=== PATIENT | female | born 1990 | race Two or more races ===

== ENCOUNTER 2020-01-13 16:10 | Outpatient (REF) | payer MEDICARE, MEDICAID, SELFPAY ==
[2020-01-13 17:02] LABS: MANUAL DIFF FLAG NO
[2020-01-13 17:05] LABS: Basophils Percent Auto 0.3 % (0-2); Eosinophils Absolute Auto 0.1 X10*3/uL (0.0-0.4); Eosinophils Percent Auto 1.3 % (0-4); Hematocrit 39.3 % (37-47); Hemoglobin 12.5 g/dl (12.0-16.0); Imm Gran Abs Auto 0.01 X10*3/uL (0.00-0.03); Imm Gran Pct Auto 0.1 % (0.0-0.4); Lymphocytes Absolute Auto 1.7 X10*3/uL (1.2-4.9); Lymphocytes Percent Auto 24.5 % (20-40); Mean Corpuscular HGB Conc 31.8 g/dl (31.0-35.0); Mean Corpuscular Hemoglobin 27.9 pg (27.0-33.0); Mean Corpuscular Volume 87.7 fL (80-98); Mean Platelet Volume 10.2 fL (9.4-12.3); Monocytes Absolute Auto 0.6 X10*3/uL (0.1-1.2); Monocytes Percent Auto 7.9 % (2-11); Neutrophils Absolute Auto 4.6 X10*3/uL (2.0-8.3); Neutrophils Percent Auto 65.9 % (45-73); Platelet Count 239 X10*3/uL (160-400); Red Blood Count 4.48 X10*6/uL (4.20-5.50); Red Cell Distribution Width 14.2 % (11.0-16.0)
[2020-01-13 17:33] LABS: Anion Gap 8 (12-20); Blood Urea Nitrogen 12 mg/dL (9-16); Calcium 8.8 mg/dL (8.4-10.2); Carbon Dioxide 31 mmol/L (22-29); Chloride 102 mmol/L (96-108); Cholesterol 155 mg/dL; Estimated Glomerular Filt Rate > 60; Glucose Random 92 mg/dL (60-115); HDL Cholesterol 45 mg/dL; LDL Cholesterol Calculated 94 mg/dl; Potassium 3.8 mmol/l (3.3-5.1); Sodium 137 mmol/L (135-145); Triglycerides 81 mg/dL
[2020-01-13 17:36] LABS: Reflex LDLD? No
[2020-01-13 17:45] LABS: Glucose Urine UA NEG (NEG); Leukocyte Esterase Urine NEG (NEG); Nitrite Urine NEG (NEG); Urine Blood NEG (NEG); Urine Ketones NEG (NEG); Urine Protein NEG (NEG-TRACE)
[2020-01-13 17:53] LABS: TSH reflex Free T4 4.54 mIU/mL (0.32-4.0)
[2020-01-13 17:59] LABS: Appearance Urine CLEAR; Color Urine YELLOW
[2020-01-13 18:00] LABS: Bacteria Urine 1+ /LPF; RBC Urine 0 /HPF (0); Squamous Epithelial Cell Urine 2+ /LPF; WBC Urine 0 /HPF (0-4)
[2020-01-13 19:04] LABS: Free T4 (Free Thyroxine) 0.93 ng/dL (0.71-1.85)
== END 2020-01-13 16:11 | disposition home or self-care (01) ==
LOC: HO.LAB 16:10
PROVIDERS: PCP Internal Medicine; Visit Provider Nurse Practitioner Family
DX: E03.9 Hypothyroidism, unspecified (principal); N39.0 Urinary tract infection, site not specified
CPT/HCPCS: 36415; 80048; 80061; 81001; 84439; 84443; 85025

== ENCOUNTER 2020-07-11 13:20 | Outpatient (REF) | payer OTHER, SELFPAY ==
--- NOTE | 2020-07-11 13:33 | ECG_ITS ---
Test Reason : R07.9 - Chest pain, unspecified Blood Pressure : / mmHG Vent. Rate : 079 BPM Atrial Rate : 079 BPM P-R Int : 132 ms QRS Dur : 076 ms QT Int : 372 ms P-R-T Axes : 011 -22 001 degrees QTc Int : 426 ms Normal sinus rhythm with sinus arrhythmia Normal ECG No previous ECGs available Referred By: Yovana Salas Electronically Signed By:KENDALL FULLER
[2020-07-11 14:04] LABS: MANUAL DIFF FLAG NO
[2020-07-11 14:09] LABS: Basophils Percent Auto 0.3 % (0-2); Eosinophils Absolute Auto 0.1 X10*3/uL (0.0-0.4); Eosinophils Percent Auto 0.9 % (0-4); Hematocrit 40.9 % (37-47); Imm Gran Abs Auto 0.02 X10*3/uL (0.00-0.03); Imm Gran Pct Auto 0.3 % (0.0-0.4); Lymphocytes Absolute Auto 1.5 X10*3/uL (1.2-4.9); Lymphocytes Percent Auto 20.1 % (20-40); Mean Corpuscular HGB Conc 31.8 g/dl (31.0-35.0); Mean Corpuscular Hemoglobin 27.4 pg (27.0-33.0); Mean Corpuscular Volume 86.3 fL (80-98); Monocytes Absolute Auto 0.5 X10*3/uL (0.1-1.2); Neutrophils Absolute Auto 5.4 X10*3/uL (2.0-8.3); Neutrophils Percent Auto 71.4 % (45-73); Platelet Count 229 X10*3/uL (160-400); Red Blood Count 4.74 X10*6/uL (4.20-5.50); Red Cell Distribution Width 14.3 % (11.0-16.0); White Blood Count 7.6 X10*3/uL (4.8-10.8)
[2020-07-11 14:39] LABS: Alanine Aminotransferase 23 U/L (0-31); Albumin Level 3.8 g/dL (3.5-5.0); Alkaline Phosphatase 70 U/L (39-117); Anion Gap 12 (12-20); Aspartate Amino Transferase 14 U/L (5-31); Bilirubin Total 0.4 mg/dL (0.0-1.0); Blood Urea Nitrogen 13 mg/dL (9-16); Calcium 9.4 mg/dL (8.4-10.2); Carbon Dioxide 27 mmol/L (22-29); Chloride 103 mmol/L (96-108); Cholesterol 164 mg/dL; Estimated Glomerular Filt Rate > 60; Glucose Fasting 82 mg/dL (60-99); HDL Cholesterol 45 mg/dL; LDL Cholesterol Calculated 96 mg/dl; Potassium 4.4 mmol/L (3.3-5.1); Sodium 138 mmol/L (135-145); Total Protein 7.3 g/dL (6.5-8.0); Triglycerides 118 mg/dL
[2020-07-11 14:49] LABS: TSH reflex Free T4 5.99 uIU/mL (0.32-4.0)
[2020-07-11 15:23] LABS: Free T4 (Free Thyroxine) 0.81 ng/dL (0.71-1.85)
[2020-07-12 06:22] LABS: Thyroid Peroxidase Antibodies >900 IU/mL (<9)
[2020-07-12 09:31] LABS: Thyroglobulin Antibodies 51 IU/mL (< or = 1)
[2020-07-15 15:56] LABS: Vitamin D 25-OH, D2 10 ng/mL; Vitamin D 25-OH, D3 7 ng/mL; Vitamin D 25-OH, Total 17 ng/mL (30-100)
[2020-07-18 16:06] LABS: Thyroid Stimulating Immunoglob <89 % baseline (<140)
== END 2020-07-11 13:21 | disposition home or self-care (01) ==
LOC: HO.LAB 13:20
PROVIDERS: PCP Internal Medicine; Visit Provider Internal Medicine
DX: R07.9 Chest pain, unspecified (principal); E55.9 Vitamin D deficiency, unspecified; E03.9 Hypothyroidism, unspecified; E78.5 Hyperlipidemia, unspecified; E66.9 Obesity, unspecified
CPT/HCPCS: 36415; 80053; 80061; 82306; 84439; 84443; 84445; 85025; 86376; 86800; 93005

== ENCOUNTER → 2020-07-20 13:52 | Outpatient (REF) | payer OTHER, SELFPAY ==
--- NOTE | 2020-07-20 13:55 | CA_ITS ---
Transthoracic Echocardiogram Patient (Last, First, Middle): Megha Ambrocio, Gender: Female Date of : 1990 Age: 30 Procedure Date: 07/20/2020 Procedure Type: Transthoracic Echocardiogram Location: OP Height: 162.56 cm Weight: 108.86 kg BSA: 2.11 m2 Heart Rate: bpm BP: 96 / 52 mmHg Fish Liver Sorter: Michelle MD: Yovana Salas MD Box Truck Washer: Loco Ward MD Symptoms: R06.02 - Shortness of breath Study Quality: Fair ECG Rhythm: Sinus Conclusions: - Essentially normal study Findings Left Ventricle Normal left ventricular size, thickness, and systolic function. The visually estimated ejection fraction is between 60-65%. Diastolic function is normal for age. Right Ventricle The right ventricle was not well visualized. Atria The left atrium is normal in size. Interatrial shunt cannot be excluded. The right atrium was not well visualized. Aortic Valve The aortic valve structure and function is likely normal. There is no aortic valve stenosis. There is no aortic valve regurgitation. Mitral Valve Normal mitral valve structure and function. There is trace mitral valve regurgitation. There is no mitral valve stenosis. Pulmonic Valve The pulmonic valve was not well visualized. Tricuspid Valve Likely normal tricuspid valve structure and function. There is trace tricuspid valve regurgitation. The right ventricular systolic pressure is normal. The right ventricular systolic pressure is 24 mmHg. Normal right atrial pressure. There is no evidence of pulmonary hypertension. Great Vessels All visible segments of the aorta are normal in size. The pulmonary artery was not well visualized. Venous The inferior vena cava is normal in size and collapses greater than 50% with inspiration. Pericardium/Pleural There is no evidence of pericardial effusion. Prior Study Comparison No prior study available for comparison. Measurements 2D Linear Measurements RVIDd: 3.17 RVIDd Index: 1.50 IVSd: 0.76 0.6-0.9/0.6-1.0 cm LVIDd: 5.24 3.9-5.3/4.2-5.9 cm LVIDd Index: 2.48 2.4-3.2/2.2-3.1 cm/m2 LVIDs: 3.62 2.0-3.6 cm LVPWd: 0.86 0.7-1.1 cm Ao Root: 2.60 2.1-3.5 cm LA Diam: 3.90 2.7-3.8/3.0-4.0 cm LAIDs Index: 1.85 1.5-2.3 cm/m2 LV Mass: 185.08 67-162/88-224 g LV Mass Index: 87.72 43-95/49-115 g/m2 LVOT Diam: 2.30 3.0+(-)1.3 cm 2D Systolic Function EF 4C: 63.30 >55% EF 2C: 65.30 >55% EF BiP: 64.20 >55% Mitral Valve MV Pk E: 1.08 MV PK A: 0.42 MV Decel Time: 215.00 E/A: 2.60 E'Lateral: 17.50 E'Medial: 10.90 E/E' Med: 9.90 E/E' Lat: 6.20 Aortic Valve AoV Pk Pelon: 1.14 AoV Mn Pelon: 0.86 AoV VTI: 0.26 AoV Pk Grad: 5.00 Aov Mn Grad: 3.00 WALLY Cont.VTI: 2.43 LVOT LVOT Pk Pelon: 0.73 LVOT Mn Pelon: 0.53 LVOT VTI: 0.15 LVOT Pk Grad: 2.00 LVOT Mn Grad: 1.00 LVOT Diam: 2.30 LVOT Area: 4.15 Diastolic Function MV Pk E: 1.08 MV Pk A: 0.42 E/A: 2.60 E'Medial: 10.90 E/E' Med: 9.90 E' Laterial: 17.50 E/E' Lat: 6.20 Tricuspid Valve TR Pk Pelon: 2.31 TR Pk Grad: 21.00 RA Press: 3.00 RVSP: 24.00 Great Vessels Aorta Ao Root-2D: 2.60 2.0-3.7 cm Ao Asc: 3.10 2.1-3.4 cm Ao Arch: 2.70 Updated in Other Vendor System with Status of Final Loco Ward MD electronically signed on 07/23/2020 12:37:44 PM with status of Final
== END ==
LOC: HO.CARD 13:52
PROVIDERS: PCP Internal Medicine; Visit Provider Internal Medicine
DX: R06.02 Shortness of breath (principal)
CPT/HCPCS: 93306

== ENCOUNTER 2020-08-18 16:43 | Emergency (ER) | payer OTHER, SELFPAY ==
[2020-08-18 17:50] VITALS: BP 138/93; PULSE 99; RESP 18; TEMP 37.2; O2SAT 99; BMI 42.9
[2020-08-18 18:15] LABS: Glucose Urine UA NEG (NEG); Leukocyte Esterase Urine NEG (NEG); Nitrite Urine NEG (NEG); PH 6.5 (5.0-8.0); Urine Blood NEG (NEG); Urine Ketones NEG (NEG); Urine Protein NEG (NEG-TRACE)
[2020-08-18 18:20] LABS: Appearance Urine CLEAR; Color Urine YELLOW
[2020-08-18 19:50] LABS: MANUAL DIFF FLAG NO
[2020-08-18 19:51] LABS: Basophils Percent Auto 0.3 % (0-2); Eosinophils Absolute Auto 0.1 X10*3/uL (0.0-0.4); Eosinophils Percent Auto 1.1 % (0-4); Hematocrit 40.6 % (37-47); Hemoglobin 13.1 g/dl (12.0-16.0); Imm Gran Abs Auto 0.02 X10*3/uL (0.00-0.03); Imm Gran Pct Auto 0.3 % (0.0-0.4); Lymphocytes Absolute Auto 1.2 X10*3/uL (1.2-4.9); Lymphocytes Percent Auto 17.5 % (20-40); Mean Corpuscular HGB Conc 32.3 g/dl (31.0-35.0); Mean Corpuscular Hemoglobin 27.7 pg (27.0-33.0); Mean Corpuscular Volume 85.8 fL (80-98); Mean Platelet Volume 9.8 fL (9.4-12.3); Monocytes Absolute Auto 0.6 X10*3/uL (0.1-1.2); Monocytes Percent Auto 8.4 % (2-11); Neutrophils Absolute Auto 4.8 X10*3/uL (2.0-8.3); Neutrophils Percent Auto 72.4 % (45-73); Platelet Count 226 X10*3/uL (160-400); Red Blood Count 4.73 X10*6/uL (4.20-5.50); Red Cell Distribution Width 14.2 % (11.0-16.0); White Blood Count 6.6 X10*3/uL (4.8-10.8)
[2020-08-18 20:27] LABS: Anion Gap 9 (12-20); Blood Urea Nitrogen 12 mg/dL (9-16); Carbon Dioxide 29 mmol/L (22-29); Chloride 104 mmol/L (96-108); Creatinine Clr Calc Pharmacy 113.6; Estimated Glomerular Filt Rate > 60; Glucose Random 89 mg/dL (60-115); Potassium 4.2 mmol/L (3.3-5.1); Sodium 138 mmol/L (135-145)
[2020-08-18 20:29] LABS: B Type Natriuretic Peptide 19 pg/mL (<100)
--- NOTE | 2020-08-18 21:58 | ED_ITS ---
HPI - General Adult General Chief complaint: General Medical Stated complaint: mutiple complaints Time Seen by Provider: 08/18/20 21:58 Source: patient Mode of arrival: ambulatory History of Present Illness HPI narrative: This is a 30-year-old female without significant past medical history who presents with complaints of 1 month of lower back pain with some associated radiation into the left lower extremity without numbness or tingling as well as stating that she has had some mild lower leg swelling that resolves overnight while sleeping. In addition, patient states that she has also had an unidentified rash that is been ?coming and going?. She does have a follow-up appoint with her primary care provider next month. Otherwise, these have not been associated with fever, chills, GI symptoms, symptoms. Patient denies any bowel or bladder dysfunction. LMP last month. Related Data Home Medications Medication Instructions Recorded Confirmed cholecalciferol (vitamin D3) 50 50 mcg PO DAILY 06/01/20 06/01/20 mcg (2,000 unit) capsule Previous Rx's Medication Instructions Recorded albuterol sulfate 0.63 mg/3 mL 0.63 mg INHALATION Q4-6H PRN 30 06/01/20 solution for nebulization Days #90 ml albuterol sulfate 90 mcg/actuation 2 puff PO Q4H PRN 30 Days #18 g 06/01/20 aerosol inhaler levothyroxine 25 mcg tablet 25 mcg PO DAILY 90 Days #90 tab 06/01/20 Allergies Allergy/AdvReac Type Severity Reaction Status Date / Time ergocalciferol (vitamin D2) AdvReac Mild swelling Verified 06/01/20 12:26 [From Vitamin D2] Review of Systems Review of Systems: Pertinent positives and negatives as stated in HPI 10 point review of systems is otherwise negative. [facility] Past Medical History Source: nursing notes reviewed Medical History Chest pain Hypothyroidism Hypovitaminosis D Mild asthma Obese Shortness of breath Surgical History No pertinent past surgical history Family History Family History Father No problems noted. Mother No problems noted. Maternal Grandmother Hypertension Paternal Grandmother Hypertension Diabetes Paternal Grandfather Diabetes Hypertension Social History Social History Smoking Status: Never smoker Advance Directives: No Advance Directives Information Provided: Yes Physical Exam Vital Signs: Vital Signs: Last Vital Signs Temp 98.9 F 08/18/20 17:50 Pulse 99 08/18/20 17:50 Resp 18 08/18/20 17:50 BP 138/93 H 08/18/20 17:50 Pulse Ox 99 08/18/20 17:50 Body Mass Index 42.9 VITAL SIGNS: Reviewed. GENERAL: Morbidly obese, Well developed, well nourished, in no acute distress. HEAD: Normocephalic/atraumatic EYES: PERRLA, EOMI EARS: Ext canals without abnormality NOSE: Nares patent bilateral OROPHARYNX: no oral lesions noted, posterior pharynx clear, moist mucosa NECK: Supple, no adenopathy LUNGS: Normal breath sounds. No adventitious sounds or accessory muscle use. SpO2<99> CARDIOVASCULAR: Regular rate and rhythm without noted murmurs ABDOMEN: Obese, Soft, non-tender, non-distended with bowel sounds. MUSCULOSKELETAL: No tenderness, deformities, or effusions noted on gross inspection, specifically no calf swelling, tenderness, pain. SKIN: Inspection of the skin reveals no rashes NEUROLOGIC: Alert and oriented x 4. Strength and sensation to light touch were grossly intact x 4. Course Course Course Narrative: This is a 30-year-old female with history and clinical presentation consistent with chronic back pain. Low clinical suspicion for DVT, renal issues, and unable to appreciate the rash that patient was referencing however there is no evidence for angioedema or anaphylaxis. Review of all investigations negative for acute changes from baseline, infections. Patient was reassured and instructed to follow-up with her outpatient physician and utilize [id number] Tylenol/ibuprofen as well as compression stockings. Medical Decision Making Lab Data Result diagrams: 08/18/20 19:35 08/18/20 19:35 Labs: Lab Results 08/18/20 08/18/20 08/18/20 Range/Units 18:02 19:35 19:35 WBC 6.6 (4.8-10.8) X10*3/uL RBC 4.73 (4.20-5.50) X10*6/uL Hgb 13.1 (12.0-16.0) g/dl Hct 40.6 (37-47) % MCV 85.8 (80-98) fL MCH 27.7 (27.0-33.0) pg MCHC 32.3 (31.0-35.0) g/dl RDW 14.2 (11.0-16.0) % Plt Count 226 (160-400) X10*3/uL MPV 9.8 (9.4-12.3) fL Immature Gran % (Auto) 0.3 (0.0-0.4) % Neut % (Auto) 72.4 (45-73) % Lymph % (Auto) 17.5 L (20-40) % [place] % (Auto) 8.4 (2-11) % Eos % (Auto) 1.1 (0-4) % Baso % (Auto) 0.3 (0-2) % Lymph # (Auto) 1.2 (1.2-4.9) X10*3/uL [place] # (Auto) 0.6 (0.1-1.2) X10*3/uL Eos # (Auto) 0.1 (0.0-0.4) X10*3/uL Baso # (Auto) 0.0 (0.0-0.2) X10*3/uL Abs Immat Gran (auto) 0.02 (0.00-0.03) X10*3/uL Absolute Neuts (auto) 4.8 (2.0-8.3) X10*3/uL Absolute Nucleated RBC 0.000 (0.0-0.012) X10*3/uL Nucleated RBC % (auto) 0.0 (0.0-0.2) /100WBC Sodium 138 (135-145) mmol/L Potassium 4.2 (3.3-5.1) mmol/L Chloride 104 (96-108) mmol/L Carbon Dioxide 29 (22-29) mmol/L Anion Gap 9 L (12-20) BUN 12 (9-16) mg/dL Creatinine 0.91 (0.5-1.4) mg/dL Estim Creat Clear Calc 113.6 Estimated GFR > 60 Random Glucose 89 (60-115) mg/dL Calcium 9.0 (8.4-10.2) mg/dL B-Natriuretic Peptide (<100) pg/mL Urine Color YELLOW Urine Appearance CLEAR Urine pH 6.5 (5.0-8.0) Ur Specific [place] 1.010 (1.005-1.025) Urine Protein NEG (NEG-TRACE) MG/DL Urine Glucose (UA) NEG (NEG) MG/DL Urine Ketones NEG (NEG) MG/DL Urine Blood NEG (NEG) Urine Nitrite NEG (NEG) Ur Leukocyte Esterase NEG (NEG) 08/18/20 Range/Units 19:35 WBC (4.8-10.8) X10*3/uL RBC (4.20-5.50) X10*6/uL Hgb (12.0-16.0) g/dl Hct (37-47) % MCV (80-98) fL MCH (27.0-33.0) pg MCHC (31.0-35.0) g/dl RDW (11.0-16.0) % Plt Count (160-400) X10*3/uL MPV (9.4-12.3) fL Immature Gran % (Auto) (0.0-0.4) % Neut % (Auto) (45-73) % Lymph % (Auto) (20-40) % [place] % (Auto) (2-11) % Eos % (Auto) (0-4) % Baso % (Auto) (0-2) % Lymph # (Auto) (1.2-4.9) X10*3/uL [place] # (Auto) (0.1-1.2) X10*3/uL Eos # (Auto) (0.0-0.4) X10*3/uL Baso # (Auto) (0.0-0.2) X10*3/uL Abs Immat Gran (auto) (0.00-0.03) X10*3/uL Absolute Neuts (auto) (2.0-8.3) X10*3/uL Absolute Nucleated RBC (0.0-0.012) X10*3/uL Nucleated RBC % (auto) (0.0-0.2) /100WBC Sodium (135-145) mmol/L Potassium (3.3-5.1) mmol/L Chloride (96-108) mmol/L Carbon Dioxide (22-29) mmol/L Anion Gap (12-20) BUN (9-16) mg/dL Creatinine (0.5-1.4) mg/dL Estim Creat Clear Calc Estimated GFR Random Glucose (60-115) mg/dL Calcium (8.4-10.2) mg/dL B-Natriuretic Peptide 19 (<100) pg/mL Urine Color Urine Appearance Urine pH (5.0-8.0) Ur Specific [place] (1.005-1.025) Urine Protein (NEG-TRACE) MG/DL Urine Glucose (UA) (NEG) MG/DL Urine Ketones (NEG) MG/DL Urine Blood (NEG) Urine Nitrite (NEG) Ur Leukocyte Esterase (NEG) Discharge Plan Discharge Clinical Impression: Obese, Back pain Patient Disposition: Home, Self-Care Instructions: Back Pain (ED), Chronic Back Pain (DC), Lower Back Exercises (ED), Lumbar Radiculopathy (ED) Additional Instructions: 1. Please resume any home medications as prescribed. 2. Recommend using [id number] Tylenol/ibuprofen as directed on the outside packaging for back pain. 3. Please follow-up with your primary care provider as scheduled. 4. Recommend using compression stockings, calf length only, these can be purchased at any [employer]. Return to the emergency department for any acute worsening of symptoms. Prescriptions: No Action cholecalciferol (vitamin D3) 50 mcg (2,000 unit) capsule 50 mcg PO DAILY RF: 0 levothyroxine 25 mcg tablet 25 mcg PO DAILY 90 Days Qty: 90 RF: 1 albuterol sulfate 90 mcg/actuation HFA aerosol inhaler 2 puff PO Q4H PRN (Reason: bronchospasm) 30 Days Qty: 18 RF: 6 albuterol sulfate 0.63 mg/3 mL solution for nebulization 0.63 mg inhalation Q4-6H PRN (Reason: shortness of breath or wheezing) 30 Days Qty: 90 RF: 3 Referrals: Yovana Izquierdo MD [Primary Care Provider] - 2 days (Re-evaluation for back pain x1 month. Lab work benign.)
[2020-08-18] MEDS: Acetaminophen 325 MG TABLET 975 MG PO (22:29)
[2020-08-18] MEDS: Ibuprofen 400 MG TABLET PO (22:30)
[2020-08-18] MEDS: Lidocaine 4 % Patch ADH..PATCH 1 PATCH TRANSDERMA (22:30)
[2020-08-18 22:58] LABS: UPreg QC Valid YES; Urine Pregnancy NEGATIVE (NEGATIVE)
== END 2020-08-18 22:58 | disposition home or self-care (01) ==
PROVIDERS: Emergency Provider Student in an Organized Health Care Education/Training Program; PCP Internal Medicine
DX: M54.5 Low back pain (principal); E66.9 Obesity, unspecified; M79.662 Pain in left lower leg; M79.661 Pain in right lower leg; R21 Rash and other nonspecific skin eruption; Z79.899 Other long term (current) drug therapy
CPT/HCPCS: 36415; 80048; 81003; 81025; 83880; 85025; 99284

== ENCOUNTER 2020-09-28 11:09 | Outpatient (REF) | payer OTHER, SELFPAY | END 2020-09-28 11:10 | disposition home or self-care (01) | LOC: HO.LAB 11:09 | PROVIDERS: PCP Internal Medicine; Visit Provider Internal Medicine | DX: Z13.89 Encounter for screening for other disorder (principal) ==

== ENCOUNTER 2020-11-07 14:31 | Outpatient (REF) | payer OTHER, SELFPAY ==
--- NOTE | ~2020-11-07 | XR_ITS ---
EXAMINATION: XR LUMBOSACRAL SPINE CLINICAL INFORMATION: Low back pain COMPARISON: None TECHNIQUE: Three views of the lumbosacral spine. FINDINGS: The vertebral bodies and posterior elements are normal. The disc spaces are preserved and the vertebral alignment is normal. The paraspinal soft tissues are normal. XR/XR lumbar spine 2-3V IMPRESSION: Unremarkable examination.
--- NOTE | ~2020-11-07 | US_ITS ---
EXAMINATION: US THYROID CLINICAL INFORMATION: Nontoxic goiter, unspecified. COMPARISON: Ultrasound soft tissue head/neck thyroid dated 10/19/2018. TECHNIQUE: Linear transducer grayscale and color Doppler examination with attention to the region of the thyroid. FINDINGS: SIZE: Measurements of the thyroid lobes and nodules are given in sagittal, anteroposterior and transverse dimensions respectively. Right Thyroid Lobe: 5.9 x 2.0 x 2.2 cm, volume 13.4 mL. Previously 5.9 x 1.9 x 2.3 cm, volume 13.5 mL. Parenchyma: The gland echotexture is heterogeneous. Thyroid vascularity is normal. Left Thyroid Lobe: 5.8 x 1.9 x 2.1 cm, volume 12.0 mL. Previously 6.0 x 1.8 x 2.1 cm, volume 11.9 mL. Parenchyma: The gland echotexture is heterogeneous. Thyroid vascularity is normal. Isthmus: 0.4 cm in maximum AP dimension. Previously 0.2 cm. No focal thyroid nodule is seen. NODES: No lymphadenopathy is seen in the tissue surrounding the thyroid gland. US/US thyroid IMPRESSION: Enlarged heterogeneous thyroid matrix might be sequela of prior thyroiditis. Thyromegaly No Thyroid nodules found.. ACR TI-RADS RECOMMENDATION REFERENCE: Ultrasound-guided fine-needle aspiration, followup ultrasound, no further follow up. * TR1 (0 point) and TR 2 (2 points): No FNA or follow up * TR3 (3 points): FNA if more than or equal to 2.5 cm in maximum dimension, followup ultrasound in 1, 3 and 5 years if 1.5 to 2.4 cm in maximum dimension. * TR4 (4-6 points): FNA if more than or equal to 1.5 cm in maximum dimension, followup ultrasound in 1, 2, 3 and 5 years if 1 to 1.4 cm in maximum dimension. * TR5 (more than or equal to 7 points): FNA if more than or equal to 1 cm in maximum dimension, followup ultrasound every year for 5 years if 0.5 to 0.9 cm in maximum dimension. * TR3, TR4 or TR5 nodules that are below the size threshold for follow up receive no follow up.
== END 2020-11-07 14:32 | disposition home or self-care (01) ==
LOC: HO.US 14:31
PROVIDERS: PCP Internal Medicine; Visit Provider Internal Medicine
DX: M54.5 Low back pain (principal); E04.9 Nontoxic goiter, unspecified
CPT/HCPCS: 72100; 76536

== ENCOUNTER 2020-11-10 09:50 | Outpatient (REF) | payer OTHER, SELFPAY ==
[2020-11-10 11:46] LABS: Hematocrit 41.3 % (37-47); Mean Corpuscular HGB Conc 31.5 g/dl (31.0-35.0); Mean Corpuscular Hemoglobin 27.1 pg (27.0-33.0); Mean Corpuscular Volume 86.2 fL (80-98); Mean Platelet Volume 10.2 fL (9.4-12.3); Platelet Count 227 X10*3/uL (160-400); Red Blood Count 4.79 X10*6/uL (4.20-5.50); Red Cell Distribution Width 14.5 % (11.0-16.0); White Blood Count 5.9 X10*3/uL (4.8-10.8)
[2020-11-10 12:20] LABS: HCG Quantitative < 2 mIU/mL
[2020-11-10 12:31] LABS: Thyroid Stimulating Hormone 7.69 uIU/mL (0.32-4.0)
[2020-11-11 16:16] LABS: Follicle Stimulating Hormone 5.2 mIU/mL; Prolactin 7.8 ng/mL
[2020-11-13 17:57] LABS: DHEA Sulfate 428 mcg/dL (18-391)
[2020-11-15 15:56] LABS: Vitamin D 25-OH, D2 9 ng/mL; Vitamin D 25-OH, D3 14 ng/mL; Vitamin D 25-OH, Total 23 ng/mL (30-100)
[2020-11-16 13:37] LABS: Testosterone, Free 14.4 pg/mL (0.1-6.4); Testosterone, Total 74 ng/dL (2-45)
== END 2020-11-10 09:51 | disposition home or self-care (01) ==
LOC: HO.LAB 09:50
PROVIDERS: Absent Provider Internal Medicine; PCP Internal Medicine; Visit Provider Advanced Practice Midwife
DX: L68.0 Hirsutism (principal); E55.9 Vitamin D deficiency, unspecified; N92.6 Irregular menstruation, unspecified; R23.2 Flushing; E03.9 Hypothyroidism, unspecified; E66.01 Morbid (severe) obesity due to excess calories; Z68.43 Body mass index [BMI] 50.0-59.9, adult
CPT/HCPCS: 36415; 82306; 82627; 83001; 83498; 84146; 84402; 84403; 84443; 84702; 85027; Q3014

== ENCOUNTER 2020-11-24 15:17 | Outpatient (REF) | payer OTHER, SELFPAY ==
--- NOTE | ~2020-11-24 | US_ITS ---
EXAMINATION: US PELVIS CLINICAL INFORMATION: This is a 30-year-old female with irregular menstruation. Vaginal bleeding. COMPARISON: Comparison is made to a previous study dated 12/06/2014. TECHNIQUE: Ultrasound of the pelvis is performed using transabdominal along with Doppler. Transvaginal ultrasound was not performed because the patient is unable to tolerate transvaginal study. FINDINGS: Uterus: The uterus is anteverted and anteflexed and measures 6.5 x 3.3 x 4.4 cm. No uterine masses are seen The double wall endometrial thickness is 0.6 mm. The uterus is smooth in contour and has normal myometrial echogenicity. No visible fibroid. Adnexa: Both ovaries are visualized. There is normal color flow to the adnexa. There is no ovarian torsion. There is no pelvic ascites or fluid collection. Right ovary measures 1.8 x 1.5 x 2.2 cm. The ovarian volume is 3.2 mL. Previously, the right ovary measured 4.9 x 2.9 x 3.1 cm. Left ovary measures 3.3 x 2.0 x 1.6 cm. The ovary volume is 5.6 mL. Previously, the left ovary measured 3.8 x 2.1 x 2.3 cm US/US pelvic complete IMPRESSION: Normal study.
== END 2020-11-24 15:18 | disposition home or self-care (01) ==
LOC: HO.US 15:17
PROVIDERS: Visit Provider Advanced Practice Midwife
DX: N92.6 Irregular menstruation, unspecified (principal)
CPT/HCPCS: 76856

== ENCOUNTER → 2020-12-15 11:14 | Outpatient (BNVA) | payer OTHER, SELFPAY | PROVIDERS: PCP Internal Medicine; Referring Provider Internal Medicine; Visit Provider Nurse Practitioner | DX: K21.9 Gastro-esophageal reflux disease without esophagitis (principal); E66.01 Morbid (severe) obesity due to excess calories; K59.04 Chronic idiopathic constipation; R10.13 Epigastric pain; Z68.43 Body mass index [BMI] 50.0-59.9, adult | CPT/HCPCS: Q3014 ==

== ENCOUNTER 2020-12-21 10:38 | Outpatient (REF) | payer OTHER, SELFPAY | END 2020-12-21 10:39 | disposition home or self-care (01) | LOC: HO.LNP 10:38 | PROVIDERS: Visit Provider Nurse Practitioner | DX: R10.13 Epigastric pain (principal); K59.04 Chronic idiopathic constipation | CPT/HCPCS: 87338 ==

== ENCOUNTER → 2020-12-25 15:24 | Outpatient (BNVA) | payer OTHER, SELFPAY | PROVIDERS: PCP Internal Medicine; Visit Provider Nurse Practitioner | DX: K59.04 Chronic idiopathic constipation (principal); A04.8 Other specified bacterial intestinal infections | CPT/HCPCS: Q3014 ==

== ENCOUNTER 2021-02-16 09:05 | Outpatient (REF) | payer OTHER, SELFPAY ==
--- NOTE | ~2021-02-16 | XR_ITS ---
EXAMINATION: XR KNEE, LEFT CLINICAL INFORMATION: Left knee pain. COMPARISON: None TECHNIQUE: AP and lateral views of the left knee. FINDINGS: Bones and soft tissues are normal. No fracture or joint effusion. Alignment is anatomic. Joint spaces are well maintained. No abnormal soft tissue calcification. XR/XR knee LT 2V IMPRESSION: Normal left knee.
[2021-02-16 10:41] LABS: Alanine Aminotransferase 21 U/L (0-31); Albumin Level 3.8 g/dL (3.5-5.0); Alkaline Phosphatase 72 U/L (39-117); Anion Gap 10 (12-20); Aspartate Amino Transferase 14 U/L (5-31); Bilirubin Total 0.3 mg/dL (0.0-1.0); Blood Urea Nitrogen 14 mg/dL (9-16); Calcium 8.8 mg/dL (8.4-10.2); Carbon Dioxide 28 mmol/L (22-29); Chloride 104 mmol/L (96-108); Cholesterol 140 mg/dL; Estimated Glomerular Filt Rate > 60; Glucose Fasting 107 mg/dL (60-99); HDL Cholesterol 36 mg/dL; LDL Cholesterol Calculated 89 mg/dl; Potassium 4.4 mmol/L (3.3-5.1); Sodium 138 mmol/L (135-145); Total Protein 7.1 g/dL (6.5-8.0); Triglycerides 79 mg/dL
[2021-02-16 11:05] LABS: Thyroid Stimulating Hormone 4.16 uIU/mL (0.32-4.0)
[2021-02-21 12:56] LABS: Vitamin D 25-OH, D2 7 ng/mL; Vitamin D 25-OH, D3 19 ng/mL; Vitamin D 25-OH, Total 26 ng/mL (30-100)
== END 2021-02-16 09:06 | disposition home or self-care (01) ==
LOC: HO.XRAY 09:05
PROVIDERS: PCP Internal Medicine; Visit Provider Internal Medicine
DX: M25.562 Pain in left knee (principal); E66.01 Morbid (severe) obesity due to excess calories; Z68.43 Body mass index [BMI] 50.0-59.9, adult; E55.9 Vitamin D deficiency, unspecified; E78.5 Hyperlipidemia, unspecified; E06.3 Autoimmune thyroiditis
CPT/HCPCS: 36415; 73560; 80053; 80061; 82306; 84443

== ENCOUNTER 2021-03-15 15:24 | Outpatient (REF) | payer OTHER, SELFPAY ==
[2021-03-15 16:36] LABS: Appearance Urine CLEAR; Color Urine YELLOW; Glucose Urine UA NEG (NEG); Leukocyte Esterase Urine NEG (NEG); Nitrite Urine NEG (NEG); PH 6.5 (5.0-8.0); Urine Blood NEG (NEG); Urine Ketones NEG (NEG); Urine Protein NEG (NEG-TRACE)
== END 2021-03-15 15:25 | disposition home or self-care (01) ==
LOC: HO.LAB 15:24
PROVIDERS: PCP Internal Medicine; Visit Provider Internal Medicine
DX: R30.0 Dysuria (principal)
CPT/HCPCS: 81003

== ENCOUNTER → 2021-04-26 13:10 | Outpatient (BNVA) | payer OTHER, SELFPAY | PROVIDERS: PCP Internal Medicine; Visit Provider Nurse Practitioner | DX: K64.9 Unspecified hemorrhoids (principal); A04.8 Other specified bacterial intestinal infections | CPT/HCPCS: 99212 ==

== ENCOUNTER → 2021-07-05 08:47 | Outpatient (REF) | payer OTHER, SELFPAY ==
--- NOTE | 2021-07-05 08:54 | ECG_ITS ---
Test Reason : CHEST PAIN Blood Pressure : / mmHG Vent. Rate : 090 BPM Atrial Rate : 090 BPM P-R Int : 148 ms QRS Dur : 074 ms QT Int : 358 ms P-R-T Axes : 018 -21 -01 degrees QTc Int : 437 ms Normal sinus rhythm Normal ECG When compared with ECG of 11-JUL-2020 13:43, No significant change was found Referred By: Yovana Salas Electronically Signed By:JOHNNY JACOME MD
--- NOTE | 2021-07-05 08:54 | ECG_ITS ---
Hook-up date: 2021-07-05 08:59:00 Duration: 47:59:00 Test Indications: TACHYCARDIA Medications: [id number] QRS complexes * Ventricular ectopics which represent % of total QRS comp. 1 Supraventricular ectopics which represent <1 % of total QRS comp. * Paced QRS complexs which represent % of total QRS comp. VENTRICULAR ECTOPY * Isolated * Bigeminal Cycles * Couplets * Runs * Beats in Runs * Beats LONGEST at * BPM at :: -- * Beats FASTEST at * BPM at :: -- SUPRAVENTRICULAR ECTOPY 1 Isolated 0 Couplets 0 Runs 0 Beats in Runs * Beats LONGEST at * BPM at :: -- * Beats FASTEST at * BPM at :: -- HEART RATES 49 MIN at 07:46:30 2021-07-07 87 AVG 140 MAX at 09:01:27 2021-07-05 LONGEST RR 1.2000 secs at 07:46:30 2021-07-07 S-T LEVELS Channel 1 - 128 mm at 08:59:00 2021-07-05 - 128 mm at 08:59:00 2021-07-05 Channel 2 - 128 mm at 08:59:00 2021-07-05 - 128 mm at 08:59:00 2021-07-05 Channel 3 - 128 mm at 02:81:81 -- - 128 mm at 02:81:81 Basic rhythm Normal sinus rhythm No long pause or profound bradycardia No arrhythmias detected. Patient reported multiple symptoms all of which correlated with NSR Referred By: Yovana Salas Overread By: JOHNNY JACOME MD
--- NOTE | 2021-07-05 08:55 | CA_ITS ---
Acquisition Time: 2021-07-05 09:15:37 Total Exercise Time: 00:05:01 Test Indications: CP, SOB Medications: SEE CHART Protocol: PRADEEP Max HR: 153 BPM 80% of Pred: 191 BPM Max BP: 140/088 mmHG Max Work Load: 7.0 METS Exercise stress test with exercise 5 min 1 sec of Pradeep protocol, achieving 80% MPHR, 7 METs, with 6/10 mid chest tightness at baseline which increased to 8/10 along with moderate sob during exercise, requested to stop exercise, without arrythmia, with normotensive response to exercise, with nondiagnostic EKG for ischemia due to suboptimal heart rate, with no ischemic changes noted at achieved workload. In recovery her symptoms returned to baseline. Test reviewed with Dr Ward Msrajeev sent to Dr Upton with report and recommendation for a pharmacological nuclear stress test for further evaluation. Referred By: Yovana Salas Overread By: BARBARA GA
== END ==
LOC: HO.CARD 08:47
PROVIDERS: Visit Provider Internal Medicine
DX: R07.9 Chest pain, unspecified (principal); R00.0 Tachycardia, unspecified
CPT/HCPCS: 93005; 93017; 93225; 93226

== ENCOUNTER 2021-07-05 20:00 | Outpatient (REF) | payer OTHER, SELFPAY | END 2021-07-05 20:01 | disposition home or self-care (01) | LOC: HO.LNP 20:00 | PROVIDERS: Visit Provider Nurse Practitioner | DX: A04.8 Other specified bacterial intestinal infections (principal) | CPT/HCPCS: 87338 ==

== ENCOUNTER 2021-07-11 13:43 | Outpatient (REF) | payer OTHER, SELFPAY ==
[2021-07-11 17:51] LABS: Appearance Urine CLEAR; Color Urine YELLOW; Glucose Urine UA NEG (NEG); Leukocyte Esterase Urine NEG (NEG); Nitrite Urine NEG (NEG); Specific Gravity - Urine 1.015 (1.005-1.025); Urine Blood NEG (NEG); Urine Ketones NEG (NEG); Urine Protein NEG (NEG-TRACE)
== END 2021-07-11 13:44 | disposition home or self-care (01) ==
LOC: HO.LAB 13:43
PROVIDERS: Visit Provider Nurse Practitioner Acute Care
DX: R30.0 Dysuria (principal); N92.6 Irregular menstruation, unspecified; R10.32 Left lower quadrant pain
CPT/HCPCS: 81003

== ENCOUNTER 2021-07-12 12:08 | Outpatient (REF) | payer OTHER, SELFPAY ==
[2021-07-12 12:29] LABS: MANUAL DIFF FLAG NO
[2021-07-12 12:40] LABS: Basophils Percent Auto 0.1 % (0-2); Eosinophils Absolute Auto 0.1 X10*3/uL (0.0-0.4); Eosinophils Percent Auto 0.9 % (0-4); Hematocrit 39.3 % (37.0-47.0); Hemoglobin 12.3 g/dl (12.0-16.0); Imm Gran Abs Auto 0.01 X10*3/uL (0.00-0.03); Imm Gran Pct Auto 0.1 % (0.0-0.4); Lymphocytes Absolute Auto 1.3 X10*3/uL (1.2-4.9); Lymphocytes Percent Auto 19.1 % (20-40); Mean Corpuscular HGB Conc 31.3 g/dl (31.0-35.0); Mean Corpuscular Hemoglobin 26.5 pg (27.0-33.0); Mean Corpuscular Volume 84.5 fL (80.0-98.0); Mean Platelet Volume 10.1 fL (9.4-12.3); Monocytes Absolute Auto 0.4 X10*3/uL (0.1-1.2); Monocytes Percent Auto 6.1 % (2-11); Neutrophils Absolute Auto 5.1 x10*3/uL (2.0-8.3); Neutrophils Percent Auto 73.7 % (45-73); Platelet Count 241 X10*3/uL (160-400); Red Blood Count 4.65 X10*6/uL (4.20-5.50); Red Cell Distribution Width 14.7 % (11.0-16.0); White Blood Count 6.9 X10*3/uL (4.8-10.8)
[2021-07-12 12:53] LABS: Estimated Average Glucose 105 mg/dL; Hemoglobin A1c % 5.3 %
[2021-07-12 13:09] LABS: Alanine Aminotransferase 56 U/L (0-31); Albumin Level 3.8 g/dL (3.5-5.0); Alkaline Phosphatase 72 U/L (39-117); Anion Gap 12 (12-20); Aspartate Amino Transferase 33 U/L (5-31); Bilirubin Total 0.7 mg/dL (0.0-1.0); Blood Urea Nitrogen 12 mg/dL (9-16); Calcium 9.3 mg/dL (8.4-10.2); Carbon Dioxide 26 mmol/L (22-29); Chloride 104 mmol/L (96-108); Cholesterol 156 mg/dL; Estimated Glomerular Filt Rate > 60; Glucose Fasting 93 mg/dL (60-99); HDL Cholesterol 43 mg/dL; LDL Cholesterol Calculated 100 mg/dl; Potassium 3.9 mmol/L (3.3-5.1); Sodium 138 mmol/L (135-145); Total Protein 7.3 g/dL (6.5-8.0); Triglycerides 65 mg/dL
[2021-07-12 13:31] LABS: HCG Quantitative < 2 mIU/mL; TSH reflex Free T4 4.08 uIU/mL (0.32-4.0)
[2021-07-12 13:40] LABS: Folate 10.4 ng/mL (> or = 4.0); Vitamin B12 710 pg/mL (200-900)
[2021-07-13 21:26] LABS: Sex Hormone Binding Globulin 30 nmol/L (17-124)
[2021-07-17 23:31] LABS: DHEA, Unconjugated 314 ng/dL
[2021-07-19 15:42] LABS: Vitamin D 25-OH, D2 6 ng/mL; Vitamin D 25-OH, D3 11 ng/mL; Vitamin D 25-OH, Total 17 ng/mL (30-100)
[2021-07-19 21:56] LABS: Testosterone, Free 12.5 pg/mL (0.1-6.4); Testosterone, Total 94 ng/dL (2-45)
[2021-07-20 17:05] LABS: Androstenedione 282 ng/dL
== END 2021-07-12 12:09 | disposition home or self-care (01) ==
LOC: HO.LAB 12:08
PROVIDERS: PCP Internal Medicine; Visit Provider Nurse Practitioner Acute Care
DX: R10.32 Left lower quadrant pain (principal); N92.6 Irregular menstruation, unspecified; A04.8 Other specified bacterial intestinal infections; K59.04 Chronic idiopathic constipation; K21.9 Gastro-esophageal reflux disease without esophagitis
CPT/HCPCS: 36415; 80053; 80061; 82157; 82306; 82607; 82626; 82746; 83036; 84270; 84402; 84403; 84439; 84443; 84702; 85025; 99212

== ENCOUNTER 2021-07-24 08:40 | Outpatient (REF) | payer OTHER, SELFPAY ==
--- NOTE | ~2021-07-24 | XR_ITS ---
EXAMINATION: XR LUMBOSACRAL SPINE CLINICAL INFORMATION: Lower back pain, unspecified COMPARISON: Lumbar spine radiographs 11/07/2020 TECHNIQUE: Three views of the lumbosacral spine. FINDINGS: The vertebral bodies and posterior elements are normal. The disc spaces are preserved and the vertebral alignment is normal. The paraspinal soft tissues are normal. XR/XR lumbar spine 2-3V IMPRESSION: Unremarkable examination.
--- NOTE | ~2021-07-24 | XR_ITS ---
EXAMINATION: XR HIP, LEFT CLINICAL INFORMATION: Pain in left hip COMPARISON: None TECHNIQUE: Two views of the left hip. FINDINGS: Bones and soft tissues are normal. No fracture. Alignment is anatomic. Hip joint space is maintained. XR/XR hip LT min 2V IMPRESSION: Normal left hip.
--- NOTE | ~2021-07-24 | XR_ITS ---
EXAMINATION: XR THORACOLUMBAR SPINE CLINICAL INFORMATION: Pain in thoracic spine COMPARISON: None TECHNIQUE: AP, lateral, swimmer's views of the thoracic spine FINDINGS: The vertebral alignment is normal. No intrinsic bony abnormality. The disc heights and neural foramina are well maintained. Minimal endplate changes at the mid thoracic spine. Posterior elements are normal. No fracture or subluxation. The surrounding prevertebral soft tissues are unremarkable. XR/XR thoracic spine 2V IMPRESSION: Minimal endplate remodeling at the mid thoracic spine, otherwise no acute abnormality of the thoracic spine.
== END 2021-07-24 08:41 | disposition home or self-care (01) ==
LOC: HO.XRAY 08:40
PROVIDERS: PCP Internal Medicine; Visit Provider Internal Medicine
DX: M54.50 Low back pain, unspecified (principal); M54.6 Pain in thoracic spine; M25.552 Pain in left hip
CPT/HCPCS: 72070; 72100; 73502

== ENCOUNTER → 2021-08-09 09:40 | Outpatient (BNVA) | payer OTHER, SELFPAY | PROVIDERS: PCP Internal Medicine; Visit Provider Advanced Practice Midwife | DX: N92.6 Irregular menstruation, unspecified (principal); R10.2 Pelvic and perineal pain; E28.2 Polycystic ovarian syndrome; G89.29 Other chronic pain; E66.01 Morbid (severe) obesity due to excess calories; Z68.43 Body mass index [BMI] 50.0-59.9, adult | CPT/HCPCS: 99212 ==

== ENCOUNTER 2021-08-22 12:30 | Outpatient (REF) | payer OTHER, SELFPAY ==
--- NOTE | ~2021-08-22 | US_ITS ---
EXAMINATION: US PELVIS, LIMITED/FOLLOW UP CLINICAL INFORMATION: Irregular menstruation. LMP unknown. COMPARISON: Pelvic ultrasound dated from 11/24/2020. TECHNIQUE: Transabdominal images of the pelvis. Patient refused transvaginal examination. FINDINGS: The uterus measures 9.1 x 3.2 x 5.6 cm. No discrete fibroids are seen. The endometrium measures up to 1.4 cm in thickness without focal abnormalities. The ovaries are normal in morphology with preserved color flow at the moment of this examination. The right ovary measures 4 x 1.3 x 2.2 cm (6 mL), and the left ovary measures 3.9 x 1.7 x 2.6 cm (9 mL). No adnexal lesions. No free fluid. US/US pelvic limited IMPRESSION: Somewhat limited transabdominal examination. Normal appearance of the ovaries without evidence of ovarian torsion at the moment of this study. Normal appearance of the uterus. The endometrium is within the upper limits of normal measuring 14 mm (normal values are 7 to 16 mm for a secretory phase of the menstrual cycle).
== END 2021-08-22 12:31 | disposition home or self-care (01) ==
LOC: HO.HMGCX 12:30
PROVIDERS: Visit Provider Nurse Practitioner Acute Care
DX: N92.6 Irregular menstruation, unspecified (principal)
CPT/HCPCS: 76857

== ENCOUNTER 2022-02-13 11:20 | Outpatient (REF) | payer OTHER, SELFPAY ==
[2022-02-13 13:51] LABS: Appearance Urine Clear; Color Urine Yellow; Glucose Urine UA Negative (Negative); Leukocyte Esterase Urine Trace (Negative); Nitrite Urine Negative (Negative); UMIC TRIGGER UACC YES; Urine Blood Negative (Negative); Urine Ketones Negative (Negative); Urine Protein Negative (Neg-Trace)
[2022-02-13 13:56] LABS: Bacteria Urine None Seen (None Seen); Hyaline Casts Urine 0-2 /LPF (0-2); UACC Culture Trigger YES
[2022-02-13 15:00] LABS: Alanine Aminotransferase 26 U/L (0-31); Alkaline Phosphatase 73 U/L (39-117); Anion Gap 12 (12-20); Aspartate Amino Transferase 21 U/L (5-31); Bilirubin Total 0.3 mg/dL (0.0-1.0); Blood Urea Nitrogen 16 mg/dL (9-16); Calcium 9.2 mg/dL (8.4-10.2); Carbon Dioxide 28 mmol/L (22-29); Chloride 103 mmol/L (96-108); Estimated Glomerular Filt Rate > 60; Glucose Fasting 81 mg/dL (60-99); Potassium 3.9 mmol/L (3.3-5.1); Sodium 139 mmol/L (135-145); Total Protein 7.5 g/dL (6.5-8.0)
== END 2022-02-13 11:21 | disposition home or self-care (01) ==
LOC: HO.LAB 11:20
PROVIDERS: Absent Provider Internal Medicine; PCP Internal Medicine; Visit Provider Nurse Practitioner
DX: A04.8 Other specified bacterial intestinal infections (principal); K59.04 Chronic idiopathic constipation; K21.9 Gastro-esophageal reflux disease without esophagitis; R10.13 Epigastric pain; E66.01 Morbid (severe) obesity due to excess calories; Z68.43 Body mass index [BMI] 50.0-59.9, adult
CPT/HCPCS: 36415; 80053; 81001; 87086; 99212

== ENCOUNTER 2022-03-15 08:34 | Outpatient (REF) | payer OTHER, SELFPAY ==
[2022-03-15 09:58] LABS: Appearance Urine Clear; Color Urine Yellow; Glucose Urine UA Negative (Negative); Leukocyte Esterase Urine Trace (Negative); Nitrite Urine Negative (Negative); PH 8.5 (5.0-9.0); UMIC TRIGGER UACC YES; Urine Blood Negative (Negative); Urine Ketones Negative (Negative); Urine Protein Negative (Neg-Trace)
[2022-03-15 10:05] LABS: Bacteria Urine None Seen (None Seen); Hyaline Casts Urine 0-2 /LPF (0-2); WBC Urine 0-5 /HPF (0-5)
[2022-03-15 10:57] LABS: Thyroid Stimulating Hormone 3.92 uIU/mL (0.32-4.0); Vitamin D 25-OH Total 16.5 ng/mL (>30)
[2022-03-15 11:17] LABS: TSH reflex Free T4 3.48 uIU/mL (0.32-4.0)
== END 2022-03-15 08:35 | disposition home or self-care (01) ==
LOC: HO.LAB 08:34
PROVIDERS: Nurse Practitioner Acute Care; PCP Internal Medicine; Visit Provider Internal Medicine
DX: E06.3 Autoimmune thyroiditis (principal); E55.9 Vitamin D deficiency, unspecified
CPT/HCPCS: 36415; 81001; 82306; 84443

== ENCOUNTER 2022-06-07 08:31 | Outpatient (REF) | payer OTHER, SELFPAY ==
[2022-06-07 12:09] LABS: Hemoglobin 13.3 g/dl (12.0-16.0); Mean Corpuscular HGB Conc 32.4 g/dl (31.0-35.0); Mean Corpuscular Hemoglobin 27.8 pg (27.0-33.0); Mean Corpuscular Volume 85.8 fL (80.0-98.0); Mean Platelet Volume 10.4 fL (9.4-12.3); Platelet Count 252 X10*3/uL (160-400); Red Blood Count 4.78 X10*6/uL (4.20-5.50); Red Cell Distribution Width 14.4 % (11.0-16.0); White Blood Count 6.1 X10*3/uL (4.8-10.8)
[2022-06-07 12:24] LABS: Appearance Urine Clear; Color Urine Yellow; Glucose Urine UA Negative (Negative); Leukocyte Esterase Urine Moderate (2+) (Negative); Nitrite Urine Negative (Negative); UMIC TRIGGER UACC YES; Urine Blood Large (3+) (Negative); Urine Ketones Negative (Negative); Urine Protein Negative (Neg-Trace)
[2022-06-07 12:27] LABS: Bacteria Urine None Seen (None Seen); Hyaline Casts Urine 0-2 /LPF (0-2); RBC Urine >20 /HPF (0-2); UACC Culture Trigger YES; WBC Urine 21-50 /HPF (0-5)
[2022-06-07 13:15] LABS: Alanine Aminotransferase 18 U/L (0-31); Albumin Level 3.9 g/dL (3.5-5.0); Alkaline Phosphatase 80 U/L (39-117); Anion Gap 13 (12-20); Aspartate Amino Transferase 16 U/L (5-31); Bilirubin Total 0.6 mg/dL (0.0-1.0); Blood Urea Nitrogen 12 mg/dL (9-16); Calcium 9.2 mg/dL (8.4-10.2); Carbon Dioxide 27 mmol/L (22-29); Chloride 103 mmol/L (96-108); Cholesterol 171 mg/dL; Estimated Glomerular Filt Rate > 60; Glucose Fasting 86 mg/dL (60-99); HDL Cholesterol 43 mg/dL; LDL Cholesterol Calculated 112 mg/dl; Potassium 4.2 mmol/L (3.3-5.1); Sodium 139 mmol/L (135-145); Total Protein 7.3 g/dL (6.5-8.0); Triglycerides 82 mg/dL
[2022-06-07 13:33] LABS: Vitamin D 25-OH Total 13.4 ng/mL (>30)
== END 2022-06-07 08:32 | disposition home or self-care (01) ==
LOC: HO.LAB 08:31
PROVIDERS: PCP Internal Medicine; Visit Provider Advanced Practice Midwife
DX: R07.9 Chest pain, unspecified (principal); N93.9 Abnormal uterine and vaginal bleeding, unspecified; E55.9 Vitamin D deficiency, unspecified; E78.5 Hyperlipidemia, unspecified; R82.90 Unspecified abnormal findings in urine
CPT/HCPCS: 36415; 80053; 80061; 81001; 82306; 85027; 87086; 99212

== ENCOUNTER 2022-06-19 08:32 | Emergency (ER) | payer OTHER, SELFPAY ==
--- NOTE | ~2022-06-19 | XR_ITS ---
EXAMINATION: XR CHEST CLINICAL INFORMATION: Chest pain COMPARISON: 12/21/2008 TECHNIQUE: 2 views of the chest were obtained. FINDINGS: No acute finding. The lung mcdonnell are grossly clear comparable to previous. No infiltrate. No effusion. The cardiac silhouette is within normal limits. Hilar structures are felt to be comparable to previous. XR/XR chest 2V IMPRESSION: No acute finding.
--- NOTE | 2022-06-19 08:37 | ECG_ITS ---
Test Reason : CHEST PAIN Blood Pressure : / mmHG Vent. Rate : 070 BPM Atrial Rate : 070 BPM P-R Int : 164 ms QRS Dur : 074 ms QT Int : 386 ms P-R-T Axes : 023 -27 -11 degrees QTc Int : 416 ms Normal sinus rhythm Nonspecific ST abnormality Abnormal ECG When compared with ECG of 05-JUL-2021 09:48, No significant change was found Referred By: Generic ED Physician Electronically Signed By:JOHNNY JACOME MD
[2022-06-19 08:52] LABS: MANUAL DIFF FLAG NO
[2022-06-19 08:53] LABS: Basophils Percent Auto 0.3 % (0-2); Eosinophils Absolute Auto 0.1 X10*3/uL (0.0-0.4); Eosinophils Percent Auto 1.7 % (0-4); Hematocrit 40.1 % (37.0-47.0); Imm Gran Abs Auto 0.01 X10*3/uL (0.00-0.03); Imm Gran Pct Auto 0.2 % (0.0-0.4); Lymphocytes Absolute Auto 1.5 X10*3/uL (1.2-4.9); Lymphocytes Percent Auto 26.2 % (20-40); Mean Corpuscular HGB Conc 32.4 g/dl (31.0-35.0); Mean Corpuscular Hemoglobin 27.5 pg (27.0-33.0); Mean Platelet Volume 9.9 fL (9.4-12.3); Monocytes Absolute Auto 0.4 X10*3/uL (0.1-1.2); Monocytes Percent Auto 7.4 % (2-11); Neutrophils Absolute Auto 3.8 x10*3/uL (2.0-8.3); Neutrophils Percent Auto 64.2 % (45-73); Platelet Count 224 X10*3/uL (160-400); Red Blood Count 4.72 X10*6/uL (4.20-5.50); Red Cell Distribution Width 14.4 % (11.0-16.0); White Blood Count 5.9 X10*3/uL (4.8-10.8)
[2022-06-19 08:58] VITALS: BP 130/86; PULSE 83; RESP 16; TEMP 36.8; O2SAT 99; BMI 50.2
[2022-06-19 09:16] LABS: Anion Gap 7 (12-20); Blood Urea Nitrogen 18 mg/dL (9-16); Calcium 8.8 mg/dL (8.4-10.2); Carbon Dioxide 28 mmol/L (22-29); Chloride 109 mmol/L (96-108); Creatinine Clr Calc Pharmacy 134.4; Estimated Glomerular Filt Rate > 60; Glucose Random 102 mg/dL (60-115); Potassium 4.1 mmol/L (3.3-5.1); Sodium 140 mmol/L (135-145)
[2022-06-19 09:29] LABS: Troponin-I High Sensitivity < 3.5 ng/L (<3.5-17.0)
--- NOTE | 2022-06-19 10:38 | ED_ITS ---
HPI - Chest Pain General Chief Complaint: Chest Pain Stated Complaint: chest pain Time Seen by Provider: 06/19/22 10:21 Source: patient Mode of arrival: ambulatory Limitations: no limitations History of Present Illness HPI narrative: 32-year-old female with no major medical problems with the exception of history of thyroiditis presents with chest pain. The chest pain is located in the sternal area. Does not radiate. The pain is currently constant. Rated as a 7/10. There are no clear worsening factors. One time it was relieved by lying on her chest. The pain is described as pressure and sharp in nature. She does have occasional shortness of breath associated with a. She describes occasional bilateral lower extremity edema which is not changed in any way. She has had no recent trauma, surgeries, immobilizations. There is no family history of PE or DVT. Related Data Home Medications Medication Instructions Recorded Confirmed fluoxetine 20 mg capsule 60 mg PO QAM 02/13/22 03/04/22 mirtazapine 30 mg tablet 30 mg PO BEDTIME 02/13/22 03/04/22 prazosin 5 mg capsule 5 mg PO BEDTIME 02/13/22 03/04/22 trazodone 100 mg tablet 100 mg PO BEDTIME 02/13/22 03/04/22 Previous Rx's Medication Instructions Recorded albuterol sulfate 90 mcg/actuation 2 puff PO Q4H PRN bronchospasm 30 04/04/21 aerosol inhaler days #18 grams hydrocortisone 2.5 % topical cream 1 appl LA BID PRN hemorrhoids #30 04/26/21 with perineal applicator grams (Proctosol HC) clotrimazole-betamethasone 1 1 appl topical BID 2 weeks #45 02/12/22 %-0.05 % topical cream grams omeprazole 40 mg capsule,delayed 40 mg PO BID 30 days #60 caps 02/13/22 release plecanatide 3 mg tablet (Trulance) 3 mg PO DAILY #30 tabs 02/13/22 simethicone 180 mg capsule 180 mg PO QID 30 days #120 caps 02/13/22 cholecalciferol (vitamin D3) 50 50 mcg PO DAILY #90 caps 03/16/22 mcg (2,000 unit) capsule meloxicam 15 mg tablet 15 mg PO DAILY #14 tabs 06/19/22 Allergies Allergy/AdvReac Type Severity Reaction Status Date / Time ergocalciferol (vitamin D2) AdvReac Mild swelling Verified 06/19/22 08:58 [From Vitamin D2] [facility] Past Medical History Medical History Abnormal menses Autoimmune thyroiditis Chest pain Elevated testosterone level GERD (gastroesophageal reflux disease) Goiter Hypothyroidism Hypovitaminosis D Left hip pain Left knee pain Lumbar pain Lumbar pain Mild asthma Morbid obesity with BMI of 50.0-59.9, adult Morbid obesity with BMI of 50.0-59.9, adult Obese PCOS (polycystic ovarian syndrome) Shortness of breath Tachycardia Thoracic spine pain Surgical History No pertinent past surgical history Family History Family History Father No problems noted. Mother No problems noted. Maternal Grandmother Hypertension Paternal Grandmother Hypertension Diabetes Paternal Grandfather Diabetes Hypertension Social History Social History Housing: Apartment Alcohol intake: never Patient Tobacco Use Status: Never used Tobacco e-Cigarette/Vaping Use: Never Used Second Hand Smoke Exposure: No Use of substances other than those prescribed or required for medical reasons: No Any prior treatment program specific to substance use: No Patient : No service: No Current occupational status: unemployed Cognitive needs: No Hearing needs: No Vision needs: No Physical Exam Vital Signs: Vital Signs: Last Vital Signs Temp 98.3 F 06/19/22 08:58 Pulse 83 06/19/22 08:58 Resp 16 06/19/22 08:58 BP 130/86 06/19/22 08:58 Pulse Ox 99 06/19/22 08:58 O2 Del Method 06/19/22 08:58 BMI result Body Mass Index 50.2 GEN: Well developed, no acute distress, alert, oriented HEENT: Normocephalic, atraumatic, normal external ears, nose appears normal, no oropharyngeal edema or exudates Eyes: Normal to appearance Neck: Supple, no lymphadenopathy Respiratory: Talks in complete sentences, no respiratory distress, clear to auscultation bilaterally Cardiovascular: Regular rate and rhythm, no murmurs rubs or gallops Abdomen: Soft, nontender, nondistended, no guarding, no rebound Back: No CVA tenderness Extremities: No clubbing cyanosis or edema Neurologic: No focal neurologic deficits, cranial nerves 2-12 intact, strength is 5/5 bilaterally, gait normal Skin: No rash Chest: Tenderness to the sternum to light and deep palpation no costochondral tenderness Course Course Course Narrative: 32-year-old female presents with chest pain. The chest pain is located midsternal area. Not associated with exertion. She does 7 occasional shortness of breath. Her examination revealed tenderness to palpation of the sternum. Otherwise, cardiac and pulmonary exams are normal. There is no evidence of lower extremity edema. Patient will have laboratory analysis, chest x-ray. I will also treat patient with analgesics and re-evaluate patient following completion lab results. Reevaluation(s) Reevaluation #1: Lab results RN. There is no evidence of elevated white blood cell count, anemia, troponin was negative, chemistry was also unremarkable. Awaiting x-ray of the chest. Patient will receive pain medications at this time Time: 10:52 Reevaluation #2: The workup is complete at this time. Chest x-ray was unremarkable. Patient has received analgesics. Discharge instructions were discussed. All results were discussed. All questions were addressed and answered. Patient is aware of reasons to return to the emergency department. Time: 11:03 Medications Administered Discontinued Medications Generic Name Dose Route Start Last Admin Trade Name Cierra PRN Reason Stop Dose Admin Acetaminophen 975 mg 06/19/22 10:47 06/19/22 10:58 Acetaminophen 325 Mg Tablet PO 06/19/22 10:48 975 mg ONCE ONE Administration Ketorolac Tromethamine 30 mg 06/19/22 10:47 06/19/22 10:59 Ketorolac Tromethamine 30 Mg/Ml Vial IM 06/19/22 10:48 30 mg ONCE ONE Administration Medical Decision Making Medical Decision Making MDM Narrative: Patient presents with atypical chest pain. Patient has no ischemic changes on EKG. There is no evidence of hemodynamic compromise. I have a low suspicion for acute coronary syndrome. I have a high suspicion for musculoskeletal chest pain. Differential diagnosis includes dissection, pericarditis, tamponade, pulmonary embolus, pneumothorax, pneumonia, esophageal spasm, reflux, musculoskeletal pain. Patient has negative PE criteria based on her perc criteria. There is no indication for D-dimer or CT scan. Patient's heart score is 0. Will obtain troponin, EKG, metabolic panel, CBC, chest x-ray. Differential Diagnosis Differential Diagnoses: The differential diagnosis associated with the presentation includes (Musculoskeletal chest pain, atypical chest pain, GERD, esophageal spasm, costochondritis, chest wall pain, acute coronary syndrome, PE, pericarditis, dissection, pneumonia) Atypical chest pain Admission/Observation Consideration of admission/observation: Escalation of care including admission/observation considered Lab Data MDM Lab Attestation statement: I reviewed the patient's lab results. 06/19/22 08:48 06/19/22 08:48 Labs: Lab Results 06/19/22 06/19/22 06/19/22 Range/Units 08:48 08:48 08:48 WBC 5.9 (4.8-10.8) X10*3/uL RBC 4.72 (4.20-5.50) X10*6/uL Hgb 13.0 (12.0-16.0) g/dl Hct 40.1 (37.0-47.0) % MCV 85.0 (80.0-98.0) fL MCH 27.5 (27.0-33.0) pg MCHC 32.4 (31.0-35.0) g/dl RDW 14.4 (11.0-16.0) % Plt Count 224 (160-400) X10*3/uL MPV 9.9 (9.4-12.3) fL Immature Gran % (Auto) 0.2 (0.0-0.4) % Neut % (Auto) 64.2 (45-73) % Lymph % (Auto) 26.2 (20-40) % [place] % (Auto) 7.4 (2-11) % Eos % (Auto) 1.7 (0-4) % Baso % (Auto) 0.3 (0-2) % Lymph # (Auto) 1.5 (1.2-4.9) X10*3/uL [place] # (Auto) 0.4 (0.1-1.2) X10*3/uL Eos # (Auto) 0.1 (0.0-0.4) X10*3/uL Baso # (Auto) 0.0 (0.0-0.2) X10*3/uL Abs Immat Gran (auto) 0.01 (0.00-0.03) X10*3/uL Absolute Neuts (auto) 3.8 (2.0-8.3) x10*3/uL Absolute Nucleated RBC 0.000 (0.0-0.012) X10*3/uL Nucleated RBC % (auto) 0.0 (0.0-0.2) /100WBC Sodium 140 (135-145) mmol/L Potassium 4.1 (3.3-5.1) mmol/L Chloride 109 H (96-108) mmol/L Carbon Dioxide 28 (22-29) mmol/L Anion Gap 7 L (12-20) BUN 18 H (9-16) mg/dL Creatinine 0.83 (0.5-1.4) mg/dL Estim Creat Clear Calc 134.4 Estimated GFR > 60 Random Glucose 102 (60-115) mg/dL Calcium 8.8 (8.4-10.2) mg/dL Troponin I High Sens < 3.5 (<3.5-17.0) ng/L Independent Interpretation I performed an independent interpretation of an: EKG (Normal sinus rhythm heart rate 70, nonspecific T-wave changes, no acute ST elevations or depressions, normal intervals) and Plain X-Ray (No acute cardiopulmonary disease on chest x- ray) External Record Review External record reviewed: Office record (Primary care office visit March 04, 2022.) Tests considered The following testing was considered but not selected: CT chest, D-dimer Prescription Management I considered prescription management with: Pain Medication Chronic Conditions Patient?s care impacted by: Other (History of thyroiditis) Discharge Plan Discharge Clinical Impression: Atypical chest pain Patient Disposition: Home, Self-Care Additional Instructions: You were evaluated in the emergency department today for chest pain. Her e valuation shows no signs of medical conditions requiring emergent intervention at this time. However, we do recognize that your follow-up with your primary care physician is important. Recommend that within the next 5 days. Please schedule appointment following her discharge from the emergency department if you should experience worsening or uncontrolled chest pain, shortness breath, lightheadedness, feeling faint, nausea, vomiting or any other concerning symptoms, please return to the emergency department. Prescriptions: New meloxicam 15 mg tablet 15 mg PO DAILY Qty: 14 0RF No Action albuterol sulfate 90 mcg/actuation HFA aerosol inhaler 2 puff PO Q4H PRN (Reason: bronchospasm) 30 Days Qty: 18 6RF clotrimazole-betamethasone 1-0.05 % cream 1 appl topical BID 14 Days Qty: 45 1RF cholecalciferol (vitamin D3) 50 mcg (2,000 unit) capsule 50 mcg PO DAILY Qty: 90 1RF fluoxetine 20 mg capsule 60 mg PO QAM prazosin 5 mg capsule 5 mg PO BEDTIME trazodone 100 mg tablet 100 mg PO BEDTIME mirtazapine 30 mg tablet 30 mg PO BEDTIME Trulance 3 mg tablet 3 mg PO DAILY Qty: 30 6RF simethicone 180 mg capsule 180 mg PO QID 30 Days Qty: 120 6RF Rx Instructions: after meals omeprazole 40 mg capsule,delayed release(DR/EC) 40 mg PO BID 30 Days Qty: 60 3RF hydrocortisone [Proctosol HC] 2.5 % cream with perineal applicator 1 appl LA BID PRN (Reason: hemorrhoids) Qty: 30 3RF Referrals: Yovana Izquierdo MD [Primary Care Provider] - 5 days
[2022-06-19] MEDS: Acetaminophen 325 MG TABLET 975 MG PO (10:58)
[2022-06-19] MEDS: Ketorolac Tromethamine 30 MG/ML VIAL IM (10:59)
[2022-06-19 11:10] VITALS: BP 127/68; PULSE 58; RESP 18; O2SAT 99
== END 2022-06-19 11:11 | disposition home or self-care (01) ==
LOC: HO.ED 11:08
PROVIDERS: Emergency Provider Emergency Medicine; PCP Internal Medicine
DX: R07.89 Other chest pain (principal); E66.01 Morbid (severe) obesity due to excess calories; Z68.43 Body mass index [BMI] 50.0-59.9, adult; Z79.899 Other long term (current) drug therapy
CPT/HCPCS: 36415; 71046; 80048; 84484; 85025; 93005; 96372; 99284; 99285; J1885

== ENCOUNTER → 2022-07-18 11:05 | Outpatient (BNVA) | payer OTHER, SELFPAY | PROVIDERS: PCP Internal Medicine; Visit Provider Advanced Practice Midwife | DX: N92.6 Irregular menstruation, unspecified (principal); E03.9 Hypothyroidism, unspecified; R03.0 Elevated blood-pressure reading, without diagnosis of hypertension; Z30.09 Encounter for other general counseling and advice on contraception | CPT/HCPCS: 99212 ==

== ENCOUNTER 2022-08-02 09:44 | Emergency (ER) | payer OTHER, SELFPAY ==
[2022-08-02 09:51] VITALS: BP 139/73; PULSE 83; RESP 16; TEMP 36.7; O2SAT 100; BMI 48.1
[2022-08-02 12:58] VITALS: BP 145/87; PULSE 78; RESP 18; TEMP 36.8; O2SAT 98
[2022-08-02 13:00] LABS: MANUAL DIFF FLAG NO
[2022-08-02 13:01] LABS: Basophils Percent Auto 0.4 % (0-2); Eosinophils Absolute Auto 0.2 X10*3/uL (0.0-0.4); Eosinophils Percent Auto 3.9 % (0-4); Hematocrit 41.8 % (37.0-47.0); Hemoglobin 13.3 g/dl (12.0-16.0); Imm Gran Abs Auto 0.01 X10*3/uL (0.00-0.03); Imm Gran Pct Auto 0.2 % (0.0-0.4); Lymphocytes Absolute Auto 1.5 X10*3/uL (1.2-4.9); Lymphocytes Percent Auto 31.6 % (20-40); Mean Corpuscular HGB Conc 31.8 g/dl (31.0-35.0); Mean Corpuscular Hemoglobin 27.1 pg (27.0-33.0); Mean Corpuscular Volume 85.1 fL (80.0-98.0); Monocytes Absolute Auto 0.4 X10*3/uL (0.1-1.2); Monocytes Percent Auto 7.6 % (2-11); Neutrophils Absolute Auto 2.6 x10*3/uL (2.0-8.3); Neutrophils Percent Auto 56.3 % (45-73); Platelet Count 229 X10*3/uL (160-400); Red Blood Count 4.91 X10*6/uL (4.20-5.50); Red Cell Distribution Width 14.4 % (11.0-16.0); White Blood Count 4.6 X10*3/uL (4.8-10.8)
--- NOTE | 2022-08-02 13:13 | ED_ITS ---
HPI - General Adult General Chief complaint: General Medical Stated complaint: ringing in both ears Time Seen by Provider: 08/02/22 13:08 Source: patient Mode of arrival: ambulatory Limitations: no limitations History of Present Illness HPI narrative: This is a 32 years old female who presented with 2 complaints one is ringing in the ears the other one is rectal bleeding. Denies any fever vomiting abdominal pain Onset (ago): day(s) (2) Radiation: non-radiation Severity: mild Pain Consistency: constant Relieving factors: none Associated symptoms: denies other symptoms Related Data Home Medications Medication Instructions Recorded Confirmed fluoxetine 20 mg capsule 60 mg PO QAM 02/13/22 03/04/22 mirtazapine 30 mg tablet 30 mg PO BEDTIME 02/13/22 03/04/22 prazosin 5 mg capsule 5 mg PO BEDTIME 02/13/22 03/04/22 trazodone 100 mg tablet 100 mg PO BEDTIME 02/13/22 03/04/22 levothyroxine 150 mcg tablet 150 mcg PO DAILY 07/18/22 Previous Rx's Medication Instructions Recorded albuterol sulfate 90 mcg/actuation 2 puff PO Q4H PRN bronchospasm 30 04/04/21 aerosol inhaler days #18 grams hydrocortisone 2.5 % topical cream 1 appl GA BID PRN hemorrhoids #30 04/26/21 with perineal applicator grams (Proctosol HC) clotrimazole-betamethasone 1 1 appl topical BID 2 weeks #45 02/12/22 %-0.05 % topical cream grams omeprazole 40 mg capsule,delayed 40 mg PO BID 30 days #60 caps 02/13/22 release plecanatide 3 mg tablet (Trulance) 3 mg PO DAILY #30 tabs 02/13/22 simethicone 180 mg capsule 180 mg PO QID 30 days #120 caps 02/13/22 cholecalciferol (vitamin D3) 50 50 mcg PO DAILY #90 caps 03/16/22 mcg (2,000 unit) capsule meloxicam 15 mg tablet 15 mg PO DAILY #14 tabs 06/19/22 Allergies Allergy/AdvReac Type Severity Reaction Status Date / Time ergocalciferol (vitamin D2) AdvReac Mild swelling Verified 08/02/22 09:55 [From Vitamin D2] Review of Systems Constitutional: Constitutional: Reports no additional constitutional complaints Cardiovascular: Cardiovascular: Reports no additional cardiovascular complaints Gastrointestinal: Gastrointestinal: Reports no additional gastrointestinal complaints [facility] Past Medical History Medical History Abnormal menses Abnormal uterine bleeding Autoimmune thyroiditis Chest pain Elevated blood pressure reading without diagnosis of hypertension Elevated testosterone level GERD (gastroesophageal reflux disease) Goiter Hypothyroidism Hypovitaminosis D Left hip pain Left knee pain Lumbar pain Lumbar pain Mild asthma Morbid obesity with BMI of 50.0-59.9, adult Morbid obesity with BMI of 50.0-59.9, adult Obese PCOS (polycystic ovarian syndrome) Shortness of breath Tachycardia Thoracic spine pain Surgical History No pertinent past surgical history Family History Family History Father No problems noted. Mother No problems noted. Maternal Grandmother Hypertension Paternal Grandmother Hypertension Diabetes Paternal Grandfather Diabetes Hypertension Social History Social History Housing: Apartment Alcohol intake: never Patient Tobacco Use Status: Never used Tobacco e-Cigarette/Vaping Use: Never Used Second Hand Smoke Exposure: No Advance Directives: No Advance Directives Information Provided: Yes service: No Current occupational status: unemployed Cognitive needs: No Hearing needs: No Vision needs: No Physical Exam ED Vital Signs: Vital Signs - 24 hr 08/02/22 09:51 08/02/22 12:58 08/02/22 13:29 Temperature 98.0 F 98.3 F Pulse Rate 83 78 99 Respiratory Rate 16 18 18 Blood Pressure 139/73 145/87 H 152/85 H Pulse Oximetry 100 98 99 Oxygen Delivery Method Room Air Room Air Room Air 08/02/22 15:22 Temperature 98.2 F Pulse Rate 77 Respiratory Rate 20 Blood Pressure 138/72 Pulse Oximetry 98 Oxygen Delivery Method Room Air BMI result Body Mass Index 48.1 Const General: cooperative HENMT Head: Yes normal to inspection Ears: hearing grossly normal bilaterally and TM's normal bilaterally General nose exam: Normal external nose present and Normal nares present Face and sinus: Yes normal facial exam Mouth: Normal oral and palatal mucosa present Neck Neck: Yes normal visual inspection Chest Chest palpation & inspection: normal inspection of the chest Resp Effort & Inspection: normal respiratory effort Auscultation: clear to auscultation bilaterally Cardio Jugular venous distension: no JVD Rate: regular rate Rhythm: regular rhythm GI Inspection: Yes normal to inspection Palpation (GI): Soft to palpation, not firm and nontender Percussion: Yes normal to percussion Rectal Exam - Female: normal sphincter tone and other (external hemorrhoid stools brown heme positive) Skin General skin exam: no rashes or lesions noted, elasticity normal and turgor normal Medical Decision Making Medical Decision Making [facility] Narrative: Patient presented with rectal bleeding on exam she does have external hemorrhoid H&H x2 was stable she is young 32 years I think it is reasonable to do outpatient workup I given the number doctor Romo GI Differential Diagnosis Differential Diagnoses: The differential diagnosis associated with the presentation includes Diverticular bleeding/hemorrhoidal bleeding/colitis Admission/Observation Consideration of admission/observation: Escalation of care including admission/observation considered Lab Data [facility] Lab Attestation statement: I reviewed the patient's lab results. Normal H&H x2 08/02/22 12:51 08/02/22 12:51 Labs: Lab Results 08/02/22 08/02/22 08/02/22 Range/Units 12:51 12:51 15:05 WBC 4.6 L (4.8-10.8) X10*3/uL RBC 4.91 (4.20-5.50) X10*6/uL Hgb 13.3 (12.0-16.0) g/dl Hct 41.8 (37.0-47.0) % MCV 85.1 (80.0-98.0) fL MCH 27.1 (27.0-33.0) pg MCHC 31.8 (31.0-35.0) g/dl RDW 14.4 (11.0-16.0) % Plt Count 229 (160-400) X10*3/uL MPV 10.0 (9.4-12.3) fL Immature Gran % (Auto) 0.2 (0.0-0.4) % Neut % (Auto) 56.3 (45-73) % Lymph % (Auto) 31.6 (20-40) % [place] % (Auto) 7.6 (2-11) % Eos % (Auto) 3.9 (0-4) % Baso % (Auto) 0.4 (0-2) % Lymph # (Auto) 1.5 (1.2-4.9) X10*3/uL [place] # (Auto) 0.4 (0.1-1.2) X10*3/uL Eos # (Auto) 0.2 (0.0-0.4) X10*3/uL Baso # (Auto) 0.0 (0.0-0.2) X10*3/uL Abs Immat Gran (auto) 0.01 (0.00-0.03) X10*3/uL Absolute Neuts (auto) 2.6 (2.0-8.3) x10*3/uL Absolute Nucleated RBC 0.000 (0.0-0.012) X10*3/uL Nucleated RBC % (auto) 0.0 (0.0-0.2) /100WBC Sodium 139 (135-145) mmol/L Potassium 3.9 (3.3-5.1) mmol/L Chloride 107 (96-108) mmol/L Carbon Dioxide 28 (22-29) mmol/L Anion Gap 8 L (12-20) BUN 10 (9-16) mg/dL Creatinine 0.80 (0.5-1.4) mg/dL Estim Creat Clear Calc 135.7 Estimated GFR > 60 Random Glucose 87 (60-115) mg/dL Calcium 8.8 (8.4-10.2) mg/dL Magnesium 2.1 (1.6-2.6) mg/dL Total Bilirubin 0.4 (0.0-1.0) mg/dL Direct Bilirubin 0.1 (0.0-0.5) mg/dL AST 15 (5-31) U/L ALT 20 (0-31) U/L Alkaline Phosphatase 73 (39-117) U/L Total Protein 7.1 (6.5-8.0) g/dL Albumin 3.8 (3.5-5.0) g/dL Lipase 19 (8-78) U/L Stool Occult Blood POSITIVE (NEGATIVE) 08/02/22 Range/Units 15:05 WBC 4.7 L (4.8-10.8) X10*3/uL RBC 4.83 (4.20-5.50) X10*6/uL Hgb 13.3 (12.0-16.0) g/dl Hct 41.8 (37.0-47.0) % MCV 86.5 (80.0-98.0) fL MCH 27.5 (27.0-33.0) pg MCHC 31.8 (31.0-35.0) g/dl RDW 14.3 (11.0-16.0) % Plt Count 236 (160-400) X10*3/uL MPV 9.9 (9.4-12.3) fL Immature Gran % (Auto) 0.2 (0.0-0.4) % Neut % (Auto) 61.9 (45-73) % Lymph % (Auto) 28.1 (20-40) % [place] % (Auto) 5.8 (2-11) % Eos % (Auto) 3.6 (0-4) % Baso % (Auto) 0.4 (0-2) % Lymph # (Auto) 1.3 (1.2-4.9) X10*3/uL [place] # (Auto) 0.3 (0.1-1.2) X10*3/uL Eos # (Auto) 0.2 (0.0-0.4) X10*3/uL Baso # (Auto) 0.0 (0.0-0.2) X10*3/uL Abs Immat Gran (auto) 0.01 (0.00-0.03) X10*3/uL Absolute Neuts (auto) 2.9 (2.0-8.3) x10*3/uL Absolute Nucleated RBC 0.000 (0.0-0.012) X10*3/uL Nucleated RBC % (auto) 0.0 (0.0-0.2) /100WBC Sodium (135-145) mmol/L Potassium (3.3-5.1) mmol/L Chloride (96-108) mmol/L Carbon Dioxide (22-29) mmol/L Anion Gap (12-20) BUN (9-16) mg/dL Creatinine (0.5-1.4) mg/dL Estim Creat Clear Calc Estimated GFR Random Glucose (60-115) mg/dL Calcium (8.4-10.2) mg/dL Magnesium (1.6-2.6) mg/dL Total Bilirubin (0.0-1.0) mg/dL Direct Bilirubin (0.0-0.5) mg/dL AST (5-31) U/L ALT (0-31) U/L Alkaline Phosphatase (39-117) U/L Total Protein (6.5-8.0) g/dL Albumin (3.5-5.0) g/dL Lipase (8-78) U/L Stool Occult Blood (NEGATIVE) Discharge Plan Discharge Clinical Impression: RB (rectal bleeding) Patient Disposition: Home, Self-Care Instructions: Rectal Bleeding (ED) Additional Instructions: Follow-up with the facilities assistant call Dr. Rmoo and make an appointment, return to the emergency room if you worse any concern Prescriptions: No Action albuterol sulfate 90 mcg/actuation HFA aerosol inhaler 2 puff PO Q4H PRN (Reason: bronchospasm) 30 Days Qty: 18 6RF clotrimazole-betamethasone 1-0.05 % cream 1 appl topical BID 14 Days Qty: 45 1RF cholecalciferol (vitamin D3) 50 mcg (2,000 unit) capsule 50 mcg PO DAILY Qty: 90 1RF meloxicam 15 mg tablet 15 mg PO DAILY Qty: 14 0RF fluoxetine 20 mg capsule 60 mg PO QAM prazosin 5 mg capsule 5 mg PO BEDTIME trazodone 100 mg tablet 100 mg PO BEDTIME mirtazapine 30 mg tablet 30 mg PO BEDTIME Trulance 3 mg tablet 3 mg PO DAILY Qty: 30 6RF simethicone 180 mg capsule 180 mg PO QID 30 Days Qty: 120 6RF Rx Instructions: after meals omeprazole 40 mg capsule,delayed release(DR/EC) 40 mg PO BID 30 Days Qty: 60 3RF hydrocortisone [Proctosol HC] 2.5 % cream with perineal applicator 1 appl GA BID PRN (Reason: hemorrhoids) Qty: 30 3RF levothyroxine 150 mcg tablet 150 mcg PO DAILY Referrals: Rhett Romo MD [Physician] - 3 days Interventions: ED Discharge Assessment Last Done: 08/02/22 15:28 Discharge Date/Time: 08/02/22 15:28
[2022-08-02 13:29] VITALS: BP 152/85; PULSE 99; RESP 18; O2SAT 99
[2022-08-02 13:36] LABS: Alanine Aminotransferase 20 U/L (0-31); Albumin Level 3.8 g/dL (3.5-5.0); Alkaline Phosphatase 73 U/L (39-117); Anion Gap 8 (12-20); Aspartate Amino Transferase 15 U/L (5-31); Bilirubin Direct 0.1 mg/dL (0.0-0.5); Bilirubin Total 0.4 mg/dL (0.0-1.0); Blood Urea Nitrogen 10 mg/dL (9-16); Calcium 8.8 mg/dL (8.4-10.2); Carbon Dioxide 28 mmol/L (22-29); Chloride 107 mmol/L (96-108); Creatinine Clr Calc Pharmacy 135.7; Estimated Glomerular Filt Rate > 60; Glucose Random 87 mg/dL (60-115); Lipase 19 U/L (8-78); Magnesium 2.1 mg/dL (1.6-2.6); Potassium 3.9 mmol/L (3.3-5.1); Sodium 139 mmol/L (135-145); Total Protein 7.1 g/dL (6.5-8.0)
[2022-08-02 15:09] LABS: MANUAL DIFF FLAG NO
[2022-08-02 15:13] LABS: Basophils Percent Auto 0.4 % (0-2); Eosinophils Absolute Auto 0.2 X10*3/uL (0.0-0.4); Eosinophils Percent Auto 3.6 % (0-4); Hematocrit 41.8 % (37.0-47.0); Hemoglobin 13.3 g/dl (12.0-16.0); Imm Gran Abs Auto 0.01 X10*3/uL (0.00-0.03); Imm Gran Pct Auto 0.2 % (0.0-0.4); Lymphocytes Absolute Auto 1.3 X10*3/uL (1.2-4.9); Lymphocytes Percent Auto 28.1 % (20-40); Mean Corpuscular HGB Conc 31.8 g/dl (31.0-35.0); Mean Corpuscular Hemoglobin 27.5 pg (27.0-33.0); Mean Corpuscular Volume 86.5 fL (80.0-98.0); Mean Platelet Volume 9.9 fL (9.4-12.3); Monocytes Absolute Auto 0.3 X10*3/uL (0.1-1.2); Monocytes Percent Auto 5.8 % (2-11); Neutrophils Absolute Auto 2.9 x10*3/uL (2.0-8.3); Neutrophils Percent Auto 61.9 % (45-73); Platelet Count 236 X10*3/uL (160-400); Red Blood Count 4.83 X10*6/uL (4.20-5.50); Red Cell Distribution Width 14.3 % (11.0-16.0); White Blood Count 4.7 X10*3/uL (4.8-10.8)
[2022-08-02 15:21] LABS: OBS Int Ctl Valid YES; OBS1 POSITIVE (NEGATIVE)
[2022-08-02 15:22] VITALS: BP 138/72; PULSE 77; RESP 20; TEMP 36.8; O2SAT 98
== END 2022-08-02 15:28 | disposition home or self-care (01) ==
PROVIDERS: Physician Assistant; Emergency Provider Emergency Medicine; PCP Internal Medicine
DX: K62.5 Hemorrhage of anus and rectum (principal); Z79.899 Other long term (current) drug therapy
CPT/HCPCS: 36415; 80048; 80076; 82272; 83690; 83735; 85025; 99283

== ENCOUNTER → 2022-09-03 10:51 | Outpatient (BNVA) | payer OTHER, SELFPAY | PROVIDERS: PCP Internal Medicine; Visit Provider Nurse Practitioner | DX: K64.9 Unspecified hemorrhoids (principal); K59.04 Chronic idiopathic constipation; K21.9 Gastro-esophageal reflux disease without esophagitis; A04.8 Other specified bacterial intestinal infections | CPT/HCPCS: 99212 ==

== ENCOUNTER 2022-12-23 10:25 | Outpatient (REF) | payer OTHER, SELFPAY ==
[2022-12-23 14:49] LABS: FIT Int Ctl YES; FIT1 NEGATIVE (NEGATIVE); FIT2 NEGATIVE (NEGATIVE)
== END 2022-12-23 10:26 | disposition home or self-care (01) ==
LOC: HO.LNP 10:25
PROVIDERS: Visit Provider Nurse Practitioner
DX: A04.8 Other specified bacterial intestinal infections (principal); K64.9 Unspecified hemorrhoids
CPT/HCPCS: 82274; 87338

== ENCOUNTER 2022-12-27 09:29 | Outpatient (AMB) | payer OTHER, SELFPAY ==
--- NOTE | 2022-12-27 09:38 | A.OFFVIS_ITS ---
Intake Vital Signs 12/27/22 09:39 Height 5 ft 4 in Weight 284 lb 6.341 oz BMI 48.8 BP 111/64 Blood Pressure Location Lt brachial Position Sitting Pulse 68 Intake Visit Reasons: 6 weeks f/u HP, CIC Intake Note: Patient presents to in office visit today in follow up of CIC. CC: Patient reports doing better from constipation but continues to have occasional abdominal bloating and pain. She states she hasn't seen any rectal bleeding for the last 2 weeks. She completed the stool test ordered. Rice Drier Required: No Rice Drier Name: Patient declined translator and interpreter Accompanied by: Self / Same As Patient Allergies ergocalciferol (vitamin D2) [From Vitamin D2] Adverse Reaction (Mild, Verified 12/27/22 09:44) swelling HPI 6 weeks f/u HP, CIC HPI Details Assessment & Plan (1) Bleeding hemorrhoids: Code(s): K64.9 - Unspecified hemorrhoids Plan: THE PATIENT IS TO LOST TO FOLLOW-UP SINCE 01/2022 Has not been using Trulance consistently, likely leading to a cycle of straining until the medication produces an BM and a the hemorrhoids. I instruct her to use it daily or on a schedule such as QOD instead of waiting. She has not yet done the HP stool test - problem with order. I will reappoint the order we will test to see if this is eradicated. She has occasional epigastric pain and dyspepsia but nothing that is sustained which is encouraging. Mother had colon polyps in her 50's. Will get FIT testing to be sure the problem is resolved and the colonoscopy is not needed. Trial of hemorrhoid cream and she was instructed how to use this with the rectal cone. ROV 6 weeks. (2) Chronic idiopathic constipation: Code(s): K59.04 - Chronic idiopathic constipation (3) GERD (gastroesophageal reflux diseas e): Code(s): K21.9 - Gastro-esophageal reflux disease without esophagitis Qualifiers: Esophagitis presence: esophagitis presence not specified Qualified Code(s): K21.9 - Gastro-esophageal reflux disease without esophagitis (4) H. pylori infection: Comment: 12/25/2020 sent quadruple therapy Code(s): A04.8 - Other specified bacterial intestinal infections Orders: Orders H pylori Ag Stool Today A04.8 - Other spec ified bacterial in testinal infection s FITS Today K64.9 - Unspecifie d hemorrhoids Medications: New hydrocortisone 2.5 % (Proctosol HC) BE SURE TO INCLU DE RECTAL APPICATO R!! 1 appl [place] BID 30 grams 6RF hemorrho ids K64.9 - Unspecifie d hemorrhoids Changed From omeprazole 40 mg PO BID 30 d ays 60 caps 3RF K21.9 - Gastro-eso phageal reflux dis ease without esoph agitis, R10.13 - E pigastric pain To omeprazole 40 mg PO BID 90 d ays 180 caps 1RF K21.9 - Gastro-eso phageal reflux dis ease without esoph agitis, R10.13 - E pigastric pain From plecanatide (Trula nce) 3 mg PO DAILY 30 tabs 6RF K59.04 - Chronic i diopathic constipa tion To plecanatide (Trula nce) 3 mg PO DAILY 90 days 90 tabs 1RF K59.04 - Chronic i diopathic constipa tion From simethicone aft er meals 180 mg PO QID 30 days 120 caps 6RF To simethicone aft er meals 180 mg PO QID 90 days 360 caps 1RF Refilled clotrimazole-betam ethasone 1-0.05 % 1 appl topical BI D 2 weeks 45 grams 1RF LABS: Laboratory Tests 08/02/22 12/23/22 12/23/22 15:05 06:40 Unknown Stool Occult Blood POSITIVE Stool H. pylori Ag negative Fecal Immunochem T est NEGATIVE FIT Diagnostic NEGATIVE TODAY'S VISIT We review the tests and it seems that the rectal bleeding has stopped. Also the HP seems eradicated. She is still having a great deal of bloating especially 1st thing in the morning. She also notes that before her bowel movement she will have to let out quite a lot of gas. So obviously she is having gas trapping. This despite the fact that she feels she moves her bowels very well using the Trulance every other day. Were she to use it every day she would have diarrhea. She never received the simethicone and I think this is something she really needs especially before bed to help her pass the gas. If not, we may need to consider moving her to something like Linzess that she can take every day so that she can actually move the stool burden out of the way on a daily basis. She continues to do well on her omeprazole for her GERD. Most of her upper stomach problems have resolved nicely. Return office visit in 6 weeks. [facility] Medical History Abnormal menses Abnormal uterine bleeding Autoimmune thyroiditis Chest pain Elevated blood pressure reading without diagnosis of hypertension Elevated testosterone level GERD (gastroesophageal reflux disease) Goiter Hypothyroidism Hypovitaminosis D Left hip pain Left knee pain Lumbar pain Lumbar pain Mild asthma Morbid obesity with BMI of 50.0-59.9, adult Morbid obesity with BMI of 50.0-59.9, adult Obese PCOS (polycystic ovarian syndrome) Shortness of breath Tachycardia Thoracic spine pain Surgical History No pertinent past surgical history Family History Father No problems noted. Mother No problems noted. Maternal Grandmother Hypertension Paternal Grandmother Hypertension Diabetes Paternal Grandfather Diabetes Hypertension Social History Housing: Apartment Alcohol intake: never Patient Tobacco Use Status: Never used Tobacco e-Cigarette/Vaping Use: Never Used Second Hand Smoke Exposure: No service: No Current occupational status: unemployed Cognitive needs: No Hearing needs: No Vision needs: No Female Reproductive History Menstrual Age of Menarche: 13 Review of Systems Const Denies fatigue, Denies fever(s), Denies night sweats, Denies poor appetite and Denies weight loss ENT Reports Normal hearing present, Denies dental pain, Denies dysphagia, Denies hearing loss, Denies mouth pain, Denies odynophagia, Denies throat swelling, Denies tongue swelling and Reports other (Dentition adequate) Card Reports no additional complaints Resp Reports no additional complaints GI Denies abdominal pain, Denies melena, Denies bloating, Denies hematochezia, Reports constipation, Denies GI cramping, Denies dysphagia, Denies excessive flatus, Denies early satiety, Reports heartburn, Denies diarrhea, Denies nausea, Denies odynophagia, Denies vomiting and Denies hematemesis Skin/Breast Denies pruritus, Denies lesions, Denies rash and Denies jaundice Neuro Reports Normal hearing present and Denies Abnormal speech present Endo Denies fatigue Aller/Immun Denies throat swelling and Denies tongue swelling Physical Exam Vital Signs: BMI result Body Mass Index 48.8 Const General: cooperative, no acute distress, well developed and well groomed Nutritional Appearance: well nourished and obese morbidly obese Orientation/consciousness: oriented to person, oriented to place and oriented to time Limitations: No language barrier HEENT Head: Yes normocephalic and Yes atraumatic Eyes General: appearance normal, both eyes and all related structures Pupils: Equal, round and reactive pupils present Neck Neck: Yes normal visual inspection and Yes no lymphadenopathy Thyroid: Thyroid normal Resp Effort & Inspection: normal respiratory effort and able to speak in complete sen tences Auscultation: clear to auscultation bilaterally Cardio Rate: regular rate Rhythm: regular rhythm Heart sounds: Normal, physiologic split S2 sound present Peripheral pulses: radial pulses present and posterior tibial pulses present GI Inspection: No distended, Yes Abdominal panniculus present and Yes obesity Palpation (GI): Soft to palpation, nontender, no guarding, not rigid and No hepatosplenomegaly present Percussion: Yes normal to percussion Auscultation: normal bowel sounds Rectal Exam - Female: deferred Skin General skin exam: no rashes or lesions noted, turgor normal, skin not dry, no jaundice, No spider nevi and no striae Rashes: no rashes Nails: normal Neuro General: oriented to person, oriented to place and oriented to time Cranial nerves: Yes Equal, round and reactive pupils present and Yes Normal hearing present Speech: No Abnormal speech present Extrem General: Yes normal to inspection, No clubbing, No cyanosis and No edema Psych Appearance: grossly normal and well kempt Mental Status: mental status grossly normal Speech and movement: Normal speech and movement present Affect: normal affect Attitude: cooperative Thought process: Normal thought process present and not confabulating Thought content: Normal thought content present Insight: Limited insight present (Psych) Judgement: Limited judgement present (Psych) Assessment & Plan Assessment & Plan (1) Bleeding hemorrhoids: Code(s): K64.9 - Unspecified hemorrhoids Plan: We review the tests and it seems that the rectal bleeding has stopped. Also the HP seems eradicated. She is still having a great deal of bloating especially 1st thing in the morning. She also notes that before her bowel movement she will have to let out quite a lot of gas. So obviously she is having gas trapping. This despite the fact that she feels she moves her bowels very well using the Trulance every ot her day. Were she to use it every day she would have diarrhea. She never received the simethicone and I think this is something she really needs especially before bed to help her pass the gas. If not, we may need to consider moving her to something like Linzess that she can take every day so that she can actually move the stool burden out of the way on a daily basis. She continues to do well on her omeprazole for her GERD. Most of her upper stomach problems have resolved nicely. Return office visit in 6 weeks. (2) H. pylori infection: Comment: 11/2022 stool antigen negative, 12/25/2020 sent quadruple therapy Code(s): A04.8 - Other specified bacterial intestinal infections (3) Chronic idiopathic constipation: Code(s): K59.04 - Chronic idiopathic constipation (4) Epigastric pain: Code(s): R10.13 - Epigastric pain (5) Morbid obesity with BMI of 50.0-59.9, adult: Code(s): E66.01 - Morbid (severe) obesity due to excess calories; Z68.43 - Body mass index [BMI] 50.0-59.9, adult (6) Abnormal uterine bleeding: Code(s): N93.9 - Abnormal uterine and vaginal bleeding, unspecified Medications: Refilled simethicone after meals 180 mg PO QID 90 days 360 caps 1RF omeprazole 40 mg PO BID 90 days 180 caps 1RF K21.9 - Gastro-esophageal reflux disease without esophagitis, R10.13 - Epigastric pain plecanatide (Trulance) 3 mg PO DAILY 90 days 90 tabs 1RF K59.04 - Chronic idiopathic constipation Coding Level of Care Code Est Pt Level 3 (40733) Diagnoses Bleeding hemorrhoids K64.9 H. pylori infection A04.8 Chronic idiopathic constipation K59.04 Epigastric pain R10.13 Morbid obesity with BMI of 50.0-59.9, adult E66.01; Z68.43 Abnormal uterine bleeding N93.9
[2022-12-27 09:39] VITALS: BP 111/64; PULSE 68; BMI 48.8
== END 2022-12-27 10:03 | disposition home or self-care (01) ==
PROVIDERS: Visit Provider Nurse Practitioner
DX: K64.9 Unspecified hemorrhoids (principal); A04.8 Other specified bacterial intestinal infections; K59.04 Chronic idiopathic constipation; R10.13 Epigastric pain; E66.01 Morbid (severe) obesity due to excess calories; Z68.43 Body mass index [BMI] 50.0-59.9, adult; N93.9 Abnormal uterine and vaginal bleeding, unspecified
CPT/HCPCS: 99213

== ENCOUNTER → 2022-12-27 09:29 | Outpatient (BNVA) | payer OTHER, SELFPAY | PROVIDERS: Visit Provider Nurse Practitioner | DX: K59.04 Chronic idiopathic constipation (principal); K64.9 Unspecified hemorrhoids; A04.8 Other specified bacterial intestinal infections; R10.13 Epigastric pain; N93.9 Abnormal uterine and vaginal bleeding, unspecified; E66.01 Morbid (severe) obesity due to excess calories; Z68.42 Body mass index [BMI] 45.0-49.9, adult | CPT/HCPCS: 99212 ==

== ENCOUNTER 2024-07-08 11:02 | Outpatient (AMB) | payer OTHER, SELFPAY ==
[2024-07-08 11:07] VITALS: BP 150/90; BMI 51.0
--- NOTE | 2024-07-08 11:07 | MHC.PC.OV ---
Vital Signs 07/08/24 11:07 Height 5 ft 4 in Weight 297 lb BMI 51.0 BP 150/90 H Blood Pressure Location Lt brachial Position Sitting Intake Visit Reasons: annual exam Intake Note: Patient here for an annual physical exam Computer Laboratory Technician Required: No Accompanied by: Self / Same As Patient Allergies ergocalciferol (vitamin D2) [From Vitamin D2] Adverse Reaction (Mild, Verified 07/08/24 11:15) swelling Tobacco use date assessed: 07/08/24 Dental Screening Dental Screen Date: 07/08/24 Did you have a dental visit in the last 12 months?: Yes Did you have a dental problem in the last 6 months where you did not have access to dental care?: No Was dental information given to patient?: Patient has dentist HPI HPI Comments History of Present Illness Details The patient is a 34-year-old female presenting for an annual physical examination. She has a history of multiple chronic conditions, including depression with anxiety, hypothyroidism, PCOS, GERD, and allergic rhinitis. The patient's depression is treated with fluoxetine 60mg daily and mirtazapine 30mg at night, and she recently had a gap in her hypothyroid medication due to a canceled appointment. Her hypothyroidism is under management with levothyroxine 150mcg, and she will follow up with her security assessor in July. Past treatments for her conditions have included medications like spironolactone for PCOS and omeprazole for managing GERD. She reports allergies to vitamin D causing swelling, which she avoids. During the visit, the patient mentioned recent symptoms of allergic rhinitis due to environmental exposure at home and confirmed that she has environmental allergies with no recent fever. Medication management and missing the tetanus vaccine were also discussed, with a planned future nurse visit for the tetanus shot. [facility], [facility] Medical History (Updated 07/08/24 @ 11:52 by Yovana Salas MD) Elevated blood pressure reading without diagnosis of hypertension Abnormal uterine bleeding PCOS (polycystic ovarian syndrome) Morbid obesity with BMI of 50.0-59.9, adult Thoracic spine pain Lumbar pain Left hip pain Tachycardia Left knee pain Elevated testosterone level Morbid obesity with BMI of 50.0-59.9, adult Autoimmune thyroiditis Abnormal menses GERD (gastroesophageal reflux disease) Lumbar pain Goiter Shortness of breath Chest pain Obese Hypovitaminosis D Mild asthma Hypothyroidism Surgical History No pertinent past surgical history Family History Father No problems noted. Mother No problems noted. Maternal Grandmother Hypertension Paternal Grandmother Hypertension Diabetes Paternal Grandfather Diabetes Hypertension Social History Housing: Apartment Alcohol intake: never Patient Tobacco Use Status: Never used Tobacco e-Cigarette/Vaping Use: Never Used Second Hand Smoke Exposure: No service: No Current occupational status: unemployed Cognitive needs: No Hearing needs: No Vision needs: No Female Reproductive History Menstrual Age of Menarche: 13 Questionnaire PHQ-9 Over the last 2 weeks, how often have you been bothered by any of the following problems? 1. Little interest or pleasure in doing things: several days 2. Feeling down, depressed, or hopeless: several days 3. Trouble falling or staying asleep, or sleeping too much: not at all 4. Feeling tired or having little energy: nearly every day 5. Poor appetite or overeating: not at all 6. Feeling bad about yourself - or that you are a failure or have let yourself or your family down: several days 7. Trouble concentrating on things, such as reading the newspaper or watching television: several days 8. Moving or speaking so slowly that other people could have noticed. Or the opposite - being so fidgety or restless that you have been moving around a lot more than usual: several days 9. Thoughts that you would be better off or of hurting yourself in some way: not at all Total score: 8 Depression Screening Interpretation: Positive Depression Screening Follow-up: Existing condition, In treatment and Follow-up Visit Requested Depression Screening Done: Yes 27218 - PHQ-9 Billing: Yes Source: Developed by Drs. Ruben Ortiz, Simran Meadows, Master Pritchard and colleagues, with an educational shelia from [employer]. Thrive Questionnaire Date Thrive assessed: 07/08/24 I am a: Patient What is your living situation today?: I have a steady place to live Within the past 12 months, did the food you bought not last and you didn't have the money to get more?: I choose not to answer this question Within the past 12 months, did you worry whether your food would run out before you got money to buy more?: I choose not to answer this question Do you have trouble paying for medicines?: No Do you have trouble getting transportation to medical appointments?: No Do you have trouble paying your heating and electricity bill?: No Do you have trouble taking care of your child, family member or friend?: No Do you have trouble with day-to-day activities such as bathing, preparing meals, shopping, managing finances, etc.?: No Are you currently unemployed and looking for a job?: No Are you interested in more education?: No Please select the resources that you would like help with: None Currently or been in a relationship where the following occur: No concerns reported THRIVE Score: 0 AUDIT C Alcohol Use Questionnaire (AUDIT-C) 1. How often do you have a drink containing alcohol?: Never Total Score: 0 ISAURO-7 AMB Questionnaire ISAURO-7 Date ISAURO - 7 assessed: 07/08/24 Feeling nervous, anxious, or on edge: 1 = Several days Not being able to stop or control worryin = Not at all Worrying too much about different things: 0 = Not at all Trouble relaxin = Several days Being so restless that it is hard to sit still: 1 = Several days Becoming easily annoyed or irritable: 2 = More than half the days Feeling afraid as if something awful might happen: 0 = Not at all Total ISAURO-7 score (0-4 normal; 5-9 mild; 10-14 moderate; 15-21 severe): 5 Source: Developed by Drs. Ruben Ortiz, Simran Meadows, Master Pritchard and colleagues, with an educational shelia from [employer]. Review of Systems Const All systems reviewed & are unremarkable except as noted in HPI and below Card Denies chest pain at rest, Denies chest pain with activity, Denies edema, Denies irregular heart rhythm, Denies claudication, Denies dyspnea, Denies dyspnea on exertion, Denies orthopnea, Denies paroxysmal nocturnal dyspnea and Denies slow heart rate Resp Denies cough, Denies dyspnea and Denies dyspnea on exertion GI Denies abdominal pain, Denies change in bowel habits, Denies excessive flatus, Denies nausea and Denies vomiting Denies urinary incontinence, Denies urinary hesitancy and Denies urinary urgency Neuro Denies lack of coordination Physical exam (Primary Care) Vital Signs: Last Vital Signs BP 150/90 H 07/08/24 11:07 BMI result Body Mass Index 51.0 BMI Assessment/Plan discussion: High BMI High, discussed plan: lifestyle, weight reduction, dietary and physical activity Tobacco/Smoking Status: Tobacco use Status Tobacco use date assessed 07/08/24 07/08/24 11:20 Patient Tobacco Use Status Never used Tobacco 07/08/24 11:11 e-Cigarette/Vaping Use Never Used 07/08/24 11:11 PHQ-9: PHQ-9 Score PHQ-9: Total score 8 07/08/24 11:11 Depression Screening Interpretation: Positive Depression Screening Follow-up: Existing condition, In treatment and Follow-up Visit Requested Thrive Assessment: Date of Thrive Assessment Date Thrive assessed 07/08/24 07/08/24 11:11 Currently or been in a relationship where the following occur: No concerns reported HENAZ Head: Yes normal to inspection, Yes normocephalic and Yes atraumatic Ears: external ears normal Eyes General: appearance normal, both eyes and all related structures Eyelids: Yes eyelids normal Conjunctivae: conjunctivae normal Neck Neck: Yes normal visual inspection and Yes supple Resp Effort & Inspection: normal respiratory effort Auscultation: clear to auscultation bilaterally Cardio Jugular venous distension: no JVD Rate: regular rate Rhythm: regular rhythm Heart sounds: S1 normal heart sound present and S2 normal heart sound present GI Inspection: Yes normal to inspection Palpation (GI): Soft to palpation and nontender Auscultation: normal bowel sounds Skin General skin exam: no rashes or lesions noted Neuro General: no focal motor deficits Extrem General: Yes full ROM Psych Appearance: grossly normal Coding Level of Care Code Est Pt Level 3 (04848) Est Pt Prev Care 18-39y(70016) Diagnoses Physical exam Z00.00 Right ankle pain M25.571 Mild recurrent major depression F33.0 Morbid obesity with BMI of 50.0-59.9, adult E66.01; Z68.43 Seasonal allergic rhinitis due to pollen J30.1 Additional Codes PHQ-9 - 68993 - PHQ-9 Billing: Yes ([id number]) Time Spent (min) 34 Assessment & Plan Assessment & Plan (1) Physical exam: Code(s): Z00.00 - Encounter for general adult medical examination without abnormal findings Category: Medical (2) Right ankle pain: Code(s): M25.571 - Pain in right ankle and joints of right foot Category: Medical (3) Mild recurrent major depression: Code(s): F33.0 - Major depressive disorder, recurrent, mild Category: Medical (4) Morbid obesity with BMI of 50.0-59.9, adult: Code(s): E66.01 - Morbid (severe) obesity due to excess calories; Z68.43 - Body mass index [BMI] 50.0-59.9, adult Category: Medical (5) Seasonal allergic rhinitis due to pollen: Code(s): J30.1 - Allergic rhinitis due to pollen Category: Medical Plan The patient will receive the tetanus vaccine during a future nurse visit. Depression is managed with fluoxetine and mirtazapine, and thyroid function will continue to be monitored under current management with levothyroxine, with a follow-up expected in July. Allergic rhinitis likely due to environmental factors will be managed with allergy medication. GERD management continues with omeprazole. Spironolactone is used for PCOS management. Headaches will require further investigation if the neurologic symptoms persist. Patient was informed and verbally consented to the use of an ambient scribe for clinic note documentation during this visit. During the visit, we discussed the option for the patient to receive her tetanus vaccination at a later nurse visit per her preference. We reviewed the current management plans for depression, hypothyroidism, PCOS, GERD, and allergic rhinitis, ensuring the patient's agreement. The patient acknowledged her current treatment strategy, including psychotropic medications and endocrine therapy. We addressed the environmental allergens causing her nasal symptoms and discussed prescribing appropriate allergy medications, which the patient consented to. We emphasized the importance of follow-up appointments with specialists to optimize her care. I advised scheduling a follow-up for persistent headaches, possibly with neurologic consultation, and encouraged continued mental health support with planned ongoing consultations. Orders: Orders Comprehensive Edroy. Panel Fast Today Z00.00 - Encounter for general adult medical examination without abnormal findings Lipid Panel Today Z00.00 - Encounter for general adult medical examination without abnormal findings XR ankle RT 2V Today M25.571 - Pain in right ankle and joints of right foot Vitamin D 25-OH Total Today E55.9 - Vitamin D deficiency, unspecified Medications: New cetirizine (All Day Allergy (cetirizine)) 10 mg PO DAILY 90 days PRN 90 tabs 1RF allergy symptoms Patient Instructions: - Schedule a nurse visit for tetanus vaccination as planned. - Continue current medications including fluoxetine and levothyroxine. Monitor mental health and thyroid symptoms. - Take prescribed allergy medication for rhinitis if environmental symptoms persist. - Continue current management for GERD and PCOS. - Schedule follow-up with security assessor in July as planned. - Consider neurologic consultation for persistent headaches. - Avoid vitamin D supplements due to known allergies.
--- OUTSIDE RECORDS SUMMARY | 2024-07-08 13:19 | XMS_ITS | Patient Health Record ---
Author Organization [facility] Address [address] [place] [address] [place] [address] Care Team Providers Care Transit Clerk Name Role Phone Jj ANG, Yovana Primary Care Provider Unavail able Milad Triplett Unavailable [phone] Allergies Allergen (clinical drug ingredient) Drug/Non Drug Allergy documented on EMR Reaction Allergy Type Onset Date Status Vitamin D2 Unknown Drug Allergy Active Reason For Referral No Information Medications Medication SIG (Take, Route, Frequency, Duration) Notes Start Date End Date Status Cephalexin 500 MG 1 capsule Orally julián ry 6 hrs for 5 day(s) Active Levothroid 125MG Active Vitamin D3 50 MCG (1999) 1 capsule Orally Active Social History Tobacco Use: Social History Observation Description Date Details (start date - stop date) Never Smoker NA - NA Tobacco Use/Smoking Question Answer Notes Are you a: nonsmoker Alcohol Screen Question Answer Notes Did you have a drink containing alcohol in the p ast year? No Points 0 Interpretation Negative Tobacco use other than smoking: Question Answer Notes Are you an other tobacco user? No Plan Of Treatment Pending Test Test Name Order Date I&D ABSCESS- SIMPLE,SINGLE 022 Insurance Providers Payer Name Payer Address Payer Phone Subscriber Number Group Number Insured Name Patient Relationship to Insured Coverage Start Date Coverage End Date [facility] SCO Claims [address] [place] [id number] Megha Ambrocio Self - patient is the insured Medical (General) History Medical History History ICD Code asthma thyroid Surgical History Surgery Date(Month/Year)
== END 2024-07-08 11:32 | disposition home or self-care (01) ==
LOC: HO.HMCH 11:03
PROVIDERS: PCP Internal Medicine; Visit Provider Internal Medicine
DX: Z00.00 Encounter for general adult medical examination without abnormal findings (principal); M25.571 Pain in right ankle and joints of right foot; F33.0 Major depressive disorder, recurrent, mild; E66.01 Morbid (severe) obesity due to excess calories; Z68.43 Body mass index [BMI] 50.0-59.9, adult; J30.1 Allergic rhinitis due to pollen

== ENCOUNTER → 2024-07-08 11:02 | Outpatient (BNVA) | payer OTHER, SELFPAY | PROVIDERS: PCP Internal Medicine; Visit Provider Internal Medicine | DX: Z00.00 Encounter for general adult medical examination without abnormal findings (principal); E03.9 Hypothyroidism, unspecified; E28.2 Polycystic ovarian syndrome; K21.9 Gastro-esophageal reflux disease without esophagitis; M25.571 Pain in right ankle and joints of right foot; F33.0 Major depressive disorder, recurrent, mild; E66.01 Morbid (severe) obesity due to excess calories; Z68.43 Body mass index [BMI] 50.0-59.9, adult; J30.1 Allergic rhinitis due to pollen; E55.9 Vitamin D deficiency, unspecified | CPT/HCPCS: 96127; 99212 ==

== ENCOUNTER → 2024-08-26 13:27 | Outpatient (BNVA) | payer OTHER, SELFPAY | PROVIDERS: PCP Internal Medicine ==

== ENCOUNTER → 2024-09-16 13:12 | Outpatient (BNVA) | payer OTHER, SELFPAY | PROVIDERS: PCP Internal Medicine ==

== ENCOUNTER 2024-09-22 12:48 | Outpatient (AMB) | payer OTHER, SELFPAY ==
[2024-09-22 13:08] VITALS: BP 88/56; PULSE 70; O2SAT 97; BMI 51.5
--- NOTE | 2024-09-22 13:08 | A.OFFVIS_ITS ---
Vital Signs 09/22/24 13:08 Height 5 ft 4 in Weight 300 lb BMI 51.5 BP 88/56 L Blood Pressure Location Rt brachial Position Sitting Pulse 70 Pulse Source Pulse Oximeter Pulse Oximetry (%) 97 Oxygen Delivery Method Room Air Intake Visit Reasons: CIC Intake Note: EST pt for mgmt of CIC + hemorrhoids. CC; Pt denies any GI sx or concerns at this time. Pt only concern is regarding recent weight gain per not having their thyroid medication recently. Water Treatment Plant Operator Required: No Accompanied by: Self / Same As Patient Allergies ergocalciferol (vitamin D2) (From Vitamin D2) Adverse Reaction (Mild, Verified 09/22/24 13:08) swelling HPI HPI CIC: Details: Assessment & Plan (1) Bleeding hemorrhoids: Code(s): K64.9 - Unspecified hemorrhoids Plan: We review the tests and it seems that the rectal bleeding has stopped. Also the HP seems eradicated. She is still having a great deal of bloating especially 1st thing in the morn ing. She also notes that before her bowel movement she will have to let out quite a lot of gas. So obviously she is having gas trapping. This despite the fact that she feels she moves her bowels very well using the Trulance every other day. Were she to use it every day she would have diarrhea. She never received the simethicone and I think this is something she really needs especially before bed to help her pass the gas. If not, we may need to consider moving her to something like Linzess that she can take every day so that she can actually move the stool burden out of the way on a daily basis. She continues to do well on her omeprazole for her GERD. Most of her upper stomach problems have resolved nicely. Return office visit in 6 weeks. (2) H. pylori infection: Comment: 11/2022 stool antigen negative, 12/25/2020 sent quadruple therapy Code(s): A04.8 - Other specified bacterial intestinal infections (3) Chronic idiopathic constipation: Code(s): K59.04 - Chronic idiopathic constipation (4) Epigastric pain: Code(s): R10.13 - Epigastric pain (5) Morbid obesity with BMI of 50.0-59.9, adult: Code(s): E66.01 - Morbid (severe) obesity due to excess calories; Z68.43 - Body mass index [BMI] 50.0-59.9, adult (6) Abnormal uterine bleeding: Code(s): N93.9 - Abnormal uterine and vaginal bleeding, unspecified Medications: Refilled simethicone after meals 180 mg PO QID 90 days 360 caps 1RF omeprazole 40 mg PO BID 90 days 180 caps 1RF K21.9 - Gastro-esophageal reflux disease without esophagitis, R10.13 - Epigastric pain plecanatide (Trulance) 3 mg PO DAILY 90 days 90 tabs 1RF K59.04 - Chronic idiopathic constipation CORRESPONDENCE On 03/19/23 @ 16:14 GonzalezJune Wrote To Gonzalez (2) Rifabutin/Flagyl therapy sent please inform the patient and follow her to come back 6-8 weeks after today's date so that we can retest her. Medication Orders metronidazole 1,000 mg (2 x 500 mg) PO BID 56 tabs 0RF 14 days New rifabutin 300 mg (2 x 150 mg) PO DAILY 14 caps 0RF New On 03/19/23 @ 10:43 Helen Flowers Wrote To Gonzalez Patient notified per message below and she stated that she would like to be retreated for H pylori. On 03/18/23 @ 10:03 Helen Flowers Wrote To Helen Flowers Called Pt and LVM requesting call back. On 03/18/23 @ 09:52 Gonzalez Wrote To Helen Flowers Can you please call Megha and ask her if we ever informed her of the positive H pylori test in November? I think this was missed and I think we need to treat her again if she is willing. I think I had informed her the last few that the H pylori was gone, and I am not sure if in incorrect lab was post to her what happened because now it showing that she is positive please let me know if she wants to retreat. TODAY'S VISIT She has been lost to follow up since 11/2022 Her last GI regimen was Trulance, omeprazole 40mg bid and simethicone. She was re treated for H pylori with rifabutin and flagyl. She is satble on this regimen and she is having less bloating than before. She moves her bowels q3days, but this is a vast improvement from moving it only every 2 weeks. The stool is not overly hard and she does not have to strain and she is not uncomfortable. Furthermore her hemorrhoids are not bleeding. I explained that not everyone has to move her bowels every day as long as she is comfortable and all the symptoms are controlled. Her GERD is also well controlled on her omeprazole twice a day. Because she had an H pylori infection, and she really does not remember if she ever received the antibiotics will retest for H pylori and then go forward depending on the result. Return office visit in 8 weeks. [facility] Medical History (Updated 09/22/24 @ 13:19 by NAM Krueger) Elevated blood pressure reading without diagnosis of hypertension Yeast cystitis Dysuria Cystitis Irregular menses Abnormal menses Physical exam Lumbar pain Epigastric pain Left lower quadrant abdominal pain Hemorrhoids Abnormal uterine bleeding PCOS (polycystic ovarian syndrome) Morbid obesity with BMI of 50.0-59.9, adult Thoracic spine pain Lumbar pain Left hip pain Tachycardia Left knee pain Elevated testosterone level Morbid obesity with BMI of 50.0-59.9, adult Autoimmune thyroiditis GERD (gastroesophageal reflux disease) Goiter Shortness of breath Chest pain Obese Hypovitaminosis D Mild asthma Hypothyroidism Surgical History No pertinent past surgical history Family History Father No problems noted. Mother No problems noted. Maternal Grandmother Hypertension Paternal Grandmother Hypertension Diabetes Paternal Grandfather Diabetes Hypertension Social History Housing: Apartment Alcohol intake: never Patient Tobacco Use Status: Never used Tobacco e-Cigarette/Vaping Use: Never Used Second Hand Smoke Exposure: No service: No Current occupational status: unemployed Cognitive needs: No Hearing needs: No Vision needs: No Female Reproductive History Menstrual Age of Menarche: 13 Review of Systems Const Denies fatigue, Denies fever(s), Denies night sweats, Denies poor appetite and Denies weight loss ENT Reports Normal hearing present, Denies dental pain, Denies dysphagia, Denies hearing loss, Denies mouth pain, Denies odynophagia, Denies throat swelling, Denies tongue swelling and Reports other (Dentition adequate) Card Reports no additional complaints Resp Reports no additional complaints GI Details: Denies abdominal pain, Denies melena, Reports bloating, Denies hematochezia, Reports constipation, Denies GI cramping, Denies dysphagia, Denies excessive flatus, Denies early satiety, Reports heartburn, Denies diarrhea, Denies nausea, Denies odynophagia, Denies vomiting and Denies hematemesis Skin/Breast Denies pruritus, Denies lesions, Denies rash and Denies jaundice Neuro Reports Normal hearing present and Denies Abnormal speech present Endo Denies fatigue Aller/Immun Denies throat swelling and Denies tongue swelling Physical Exam Vital Signs: Last Vital Signs Pulse 70 09/22/24 13:08 BP 88/56 L 09/22/24 13:08 Pulse Ox 97 09/22/24 13:08 Oxygen Delivery Method Room Air 09/22/24 13:08 BMI result Body Mass Index 51.5 Const General: cooperative, no acute distress, well developed and well groomed Nutritional Appearance: well nourished and obese Orientation/consciousness: oriented to person, oriented to place and oriented to time Limitations: No language barrier HEENT Head: Yes normocephalic and Yes atraumatic Eyes General: appearance normal, both eyes and all related structures Pupils: Equal, round and reactive pupils present Neck Neck: Yes normal visual inspection and Yes no lymphadenopathy Thyroid: Thyroid normal Resp Effort & Inspection: normal respiratory effort and able to speak in complete sentences Auscultation: clear to auscultation bilaterally Cardio Rate: regular rate Rhythm: regular rhythm Heart sounds: Normal, physiologic split S2 sound present Peripheral pulses: radial pulses present and posterior tibial pulses present GI Inspection: No distended, Yes Abdominal panniculus present and Yes obesity Palpation (GI): Soft to palpation, nontender, no guarding, not rigid and No hepatosplenomegaly present Percussion: Yes normal to percussion Auscultation: normal bowel sounds Rectal Exam - Female: deferred Skin General skin exam: no rashes or lesions noted, turgor normal, skin not dry, no jaundice, No spider nevi and no striae Rashes: no rashes Nails: normal Neuro General: oriented to person, oriented to place and oriented to time Cranial nerves: Yes Equal, round and reactive pupils present and Yes Normal hearing present Speech: No Abnormal speech present Extrem General: Yes normal to inspection, No clubbing, No cyanosis and No edema Psych Appearance: grossly normal and well kempt Mental Status: mental status grossly normal Speech and movement: Normal speech and movement present Affect: normal affect Attitude: cooperative Thought process: Normal thought process present and not confabulating Thought content: Normal thought content present Insight: Fair insight present (Psych) Judgement: Fair judgement present (Psych) Assessment & Plan Assessment & Plan (1) GERD (gastroesophageal reflux disease): Code(s): K21.9 - Gastro-esophageal reflux disease without esophagitis Category: Medical Qualifiers: Esophagitis presence: esophagitis presence not specified Qualified Code(s): K21.9 - Gastro-esophageal reflux disease without esophagitis (2) H. pylori infection: Comment: 11/2022 stool antigen positive, 12/25/2020 sent quadruple therapy, also failed Levaquin/amoxicillin rescue therapy 02/2022 Code(s): A04.8 - Other specified bacterial intestinal infections Category: Medical (3) Chronic idiopathic constipation: Code(s): K59.04 - Chronic idiopathic constipation Category: Medical Plan She has been lost to follow up since 11/2022 Her last GI regimen was Trulance, omeprazole 40mg bid and simethicone. She was re treated for H pylori with rifabutin and flagyl. She is satble on this regimen and she is having less bloating than before. She moves her bowels q3days, but this is a vast improvement from moving it only every 2 weeks. The stool is not overly hard and she does not have to strain and she is not uncomfortable. Furthermore her hemorrhoids are not bleeding. I explained that not everyone has to move her bowels every day as long as she is comfortable and all the symptoms are controlled. Her GERD is also well controlled on her omeprazole twice a day. Because she had an H pylori infection, and she really does not remember if she ever received the antibiotics will retest for H pylori and then go forward depending on the result. The only new health condition since I last saw her as hypertension. She was recently started on losartan 25 mg a couple of weeks ago. Because her pressure was a little low today I did educate her to utilize caution when changing position suddenly and to stay well hydrated until they can evaluate if this is the appropriate medication or dose her. This would be to avoid syncope. Return office visit in 8 weeks. Orders: Orders H pylori Ag Stool Today A04.8 - Other specified bacterial intestinal infections Medications: Refilled omeprazole 40 mg PO BID 180 caps 1RF 90 days K21.9 - Gastro-esophageal reflux disease without esophagitis, R10.13 - Epigastric pain plecanatide (Trulance) 3 mg PO DAILY 90 tabs 1RF 90 days K59.04 - Chronic idiopathic constipation simethicone after meals 180 mg PO QID 360 caps 1RF 90 days Coding Level of Care Code Est Pt Level 3 (26430) Diagnoses Gastroesophageal reflux disease, unspecified whether esophagitis present K21.9 Esophagitis presence: esophagitis presence not specified H. pylori infection A04.8 Chronic idiopathic constipation K59.04
== END 2024-09-22 13:28 | disposition home or self-care (01) ==
LOC: HO.HGI 12:48
PROVIDERS: PCP Internal Medicine; Visit Provider Nurse Practitioner
DX: K21.9 Gastro-esophageal reflux disease without esophagitis (principal); A04.8 Other specified bacterial intestinal infections; K59.04 Chronic idiopathic constipation
CPT/HCPCS: 99213

== ENCOUNTER → 2024-09-22 12:48 | Outpatient (BNVA) | payer OTHER, SELFPAY | PROVIDERS: PCP Internal Medicine; Visit Provider Nurse Practitioner | DX: A04.8 Other specified bacterial intestinal infections (principal); K59.04 Chronic idiopathic constipation; R10.13 Epigastric pain; E66.01 Morbid (severe) obesity due to excess calories; N93.9 Abnormal uterine and vaginal bleeding, unspecified; K21.9 Gastro-esophageal reflux disease without esophagitis | CPT/HCPCS: 99212 ==

== ENCOUNTER 2024-10-20 15:29 | Outpatient (REF) | payer OTHER, SELFPAY ==
--- OUTSIDE RECORDS SUMMARY | 2024-10-15 23:59 | XMS_ITS | Continuity of Care Document ---
Author Organization [facility] Address [address] [place] [id number] Care Team Providers Care Sterile Products Processor Name Role Phone Won Salas MD, Yovana Taylor Primary Care Phys[id number] Date[facility]s): [facility]11[facility]24 - 10/15/24 [facility] [address] [place] [address] Attending Physician: Es Clarke MD Admitting Physician: Es Clarke MD Referring Physician: Yovana Izquierdo MD Encounter Type: Pre-OutPatient One Time Allergies, Adverse Reactions, Alerts No Known Allergies Medications Albuterol 0 Refills, Maintenance, 05/06/12 11:51:35 AM EST Start Date: 05/06/12 Status: Ordered Repeat number: 1 levothyroxine 150 mcg (0.15 mg) oral tablet 1 tablet = 150 mcg, By Mouth, Daily, on an empty stomach with plenty of water as a single daily dose at least 1 hour before breakfast or other medications avoid antacids, calcium, or iron for at least 4 hrs before or 4 hrs after, # 90 tablet, 3 Refills, Maintenance, 01/26/24 2:33:00 PM EDT, Tablet,[facility]/pharmacy #[id number], Partial fill upon patient request if the prescription is for a schedule II opioid drug., 162.56, cm, 01/26/24 13:59:00 EDT, Height Start Date: 01/26/24 Status: Ordered Quantity: 90.0 Unit: tablet Repeat number: 4 Indications: Other specified hypothyroidism; spironolactone 50 mg oral tablet 1 tablet = 50 mg, By Mouth, 2 times a day, with meals, # 180 tablet, 3 Refills, Maintenance, 01/26/24 2:47:00 PM EDT, Tablet, [facility] #[id number], Partial fill upon patient request if the prescriptionis for a schedule II opioid drug., 162.56, cm, 01/26/24 13:59:00 EDT, Height Start Date: 01/26/24 Status: Ordered Quantity: 180.0 Unit: tablet Repeat number: 4 Indications: Polycystic ovarian syndrome; Problem List Condition Confirmation Course Effective Dates Status H ealth Status Informant Hypothyroidism Confirmed Active Probable PCOS (polycystic ovarian syndrome) Confirmed Active Severe obesity Confirmed Active Patient Care team information Care Team Personnel Name: Won Salas MD , Yovana Taylor Position: Reference Physician Member Role: PCP Address: [address] [place] [address] [address] [place], [place] [address] Telecom: Care Team Related Persons Name: DAVE CURIEL Insurance Providers Guarantor name: NICHELLE Health Plan Information #: 1 Payer: [facility] Payer Identifier: NICHELLE Member Number: [id number] Group Number: [id number] Subscriber Identifier: [id number] Relationship to Subscriber: self Coverage Type: Medicare Managed Care (Includes Medicare Advantage Plans) Coverage Verification Date: NICHELLE Telecom: NICHELLE Address:
--- OUTSIDE RECORDS SUMMARY | 2024-10-20 15:46 | XMS_ITS | Patient Health Record ---
Author Organization [facility] Address [address] [place] [address] [place] [address] Care Team Providers Care Market Research Coordinator Name Role Phone Jj ANG, Yovana Primary Care Provider Unavail able Milad Triplett Unavailable [phone] Allergies Allergen (clinical drug ingredient) Drug/Non Drug Allergy documented on EMR Reaction Allergy Type Onset Date Status Vitamin D2 Unknown Drug Allergy Active Reason For Referral No Information Medications Medication SIG (Take, Route, Frequency, Duration) Notes Start Date End Date Status Cephalexin 500 MG 1 capsule Orally julián ry 6 hrs; Duration: 5 day(s) Active Levothroid 125MG Active Vitamin [...] Treatment Pending Test Test Name Order Date [address]45 I&D ABSCESS- SIMPLE,SINGLE 022 Insurance Providers Payer Name Payer Address Payer Phone Subscriber Number Group Number Insured Name Patient Relationship to Insured Coverage Start Date Coverage End Date [facility] SCO Claims [address] [place] [address] [phone] [id number] Megha Ambrocio Self - patient is the insured Medical (General) History Medical History History ICD Code asthma thyroid Surgical History Surgery Date(Month/Year)
== END 2024-10-20 15:30 | disposition home or self-care (01) ==
LOC: HO.LNP 15:29
PROVIDERS: Visit Provider Nurse Practitioner
DX: A04.8 Other specified bacterial intestinal infections (principal)
CPT/HCPCS: 87338

== ENCOUNTER 2024-11-26 12:46 | Outpatient (AMB) | payer OTHER, SELFPAY ==
--- NOTE | 2024-11-26 12:49 | MHC.OFFVIS ---
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 Information Interpreted: non-clinical & clinical Accompanied by: Self / Same As Patient Allergies ergocalciferol (vitamin D2) (From Vitamin D2) Adverse Reaction (Mild, Verified 11/26/24 12:52) swelling Is last menstrual period known: Yes Last menstrual period: 11/10/24 HPI HPI H pylori, CIC, GERD: Details: Assessment & Plan (1) GERD (gastroesophageal reflux disease): Code(s): K21.9 - Gastro-esophageal reflux disease without esophagitis Category: Medical Qualifiers: Esophagitis presence: esophagitis presence not specified Qualified Code(s): K21.9 - Gastro-esophageal reflux disease without esophagitis (2) H. pylori infection: Comment: 11/2022 stool antigen positive, 12/25/2020 sent quadruple therapy, also failed Levaquin/amoxicillin rescue therapy 02/2022 Code(s): A04.8 - Other specified bacterial intestinal infections Category: Medical (3) Chronic idiopathic constipation: Code(s): K59.04 - Chronic idiopathic constipation Category: Medical Plan She has been lost to follow up since 11/2022 Her last GI regimen was Trulance, omeprazole 40mg bid and simethicone. She was re treated for H pylori with rifabutin and flagyl. She is stable on this regimen and she is having less bloating than before. She moves her bowels q3days, but this is a vast improvement from moving it only every 2 weeks. The stool is not overly hard and she does not have to strain and she is not uncomfortable. Furthermore her hemorrhoids are not bleeding. I explained that not everyone has to move her bowels every day as long as she is comfortable and all the symptoms are controlled. Her GERD is also well controlled on her omeprazole twice a day. Because she had an H pylori infection, and she really does not remember if she ever received the antibiotics will retest for H pylori and then go forward depending on the result. The only new health condition since I last saw her as hypertension. She was recently started on losartan 25 mg a couple of weeks ago. Because her pressure was a little low today I did educate her to utilize caution when changing position suddenly and to stay well hydrated until they can evaluate if this is the appropriate medication or dose her. This would be to avoid syncope. Return office visit in 8 weeks. Orders: Orders H pylori Ag Stool Today A04.8 - Other specified bacterial intestinal infections Medications: Refilled omeprazole 40 mg PO BID 180 caps 1RF 90 days K21.9 - Gastro-esophageal reflux disease without esophagitis, R10.13 - Epigastric pain plecanatide (Trulance) 3 mg PO DAILY 90 tabs 1RF 90 days K59.04 - Chronic idiopathic constipation simethicone after meals 180 mg PO QID 360 caps 1RF 90 days LABS: Laboratory Tests 10/20/24 14:14 Stool H. pylori Ag POSITIVE TODAY'S VISIT Her last GI regimen was Trulance, omeprazole 40mg bid and simethicone. She was re treated for H pylori with rifabutin and flagyl. BUT SHE DOES NOT REMEMBER IF SHE EVER RECEIVED THE ANTIBIOTICS. FORMERLY [facility], [facility] Medical History Elevated blood pressure reading without diagnosis of hypertension Yeast cystitis Dysuria Cystitis Irregular menses Abnormal menses Physical exam Lumbar pain Epigastric pain Left lower quadrant abdominal pain Hemorrhoids Abnormal uterine bleeding PCOS (polycystic ovarian syndrome) Morbid obesity with BMI of 50.0-59.9, adult Thoracic spine pain Lumbar pain Left hip pain Tachycardia Left knee pain Elevated testosterone level Morbid obesity with BMI of 50.0-59.9, adult Autoimmune thyroiditis GERD (gastroesophageal reflux disease) Goiter Shortness of breath Chest pain Obese Hypovitaminosis D Mild asthma Hypothyroidism Surgical History No pertinent past surgical history Family History Father No problems noted. Mother No problems noted. Maternal Grandmother Hypertension Paternal Grandmother Hypertension Diabetes Paternal Grandfather Diabetes Hypertension Social History Housing: Apartment Alcohol intake: never Patient Tobacco Use Status: Never used Tobacco e-Cigarette/Vaping Use: Never Used Second Hand Smoke Exposure: No service: No Current occupational status: unemployed Cognitive needs: No Hearing needs: No Vision needs: No Female Reproductive History Menstrual Age of Menarche: 13 Duration of menses: 6-7 days Date of last menstrual period: 11/10/24 Review of Systems Const Denies fatigue, Denies fever(s), Denies night sweats, Denies poor appetite and Denies weight loss ENT Reports Normal hearing present, Denies dental pain, Denies dysphagia, Denies hearing loss, Denies mouth pain, Denies odynophagia, Denies throat swelling, Denies tongue swelling and Reports other (Dentition adequate) Card Reports no additional complaints Resp Reports no additional complaints GI Details: Reports abdominal pain, Denies melena, Reports bloating, Denies hematochezia, Reports constipation, Denies GI cramping, Denies dysphagia, Denies excessive flatus, Denies early satiety, Reports heartburn, Denies diarrhea, Denies nausea, Denies odynophagia, Denies vomiting and Denies hematemesis Skin/Breast Denies pruritus, Denies lesions, Denies rash and Denies jaundice Neuro Reports Normal hearing present and Denies Abnormal speech present Endo Denies fatigue Aller/Immun Denies throat swelling and Denies tongue swelling Physical Exam Vital Signs: Last Vital Signs Pulse 86 11/26/24 12:51 Resp 15 11/26/24 12:51 BP 134/78 11/26/24 12:51 BMI result Body Mass Index 51.5 Const General: cooperative, no acute distress, well developed and well groomed Nutritional Appearance: well nourished and obese morbidly obese Orientation/consciousness: oriented to person, oriented to place and oriented to time Limitations: No language barrier HEENT Head: Yes normocephalic and Yes atraumatic Eyes General: appearance normal, both eyes and all related structures Pupils: Equal, round and reactive pupils present Neck Neck: Yes normal visual inspection and Yes no lymphadenopathy Thyroid: Thyroid normal Resp Effort & Inspection: normal respiratory effort and able to speak in complete sentences Auscultation: clear to auscultation bilaterally Cardio Rate: regular rate Rhythm: regular rhythm Heart sounds: Normal, physiologic split S2 sound present Peripheral pulses: radial pulses present and posterior tibial pulses present GI Inspection: No distended, Yes Abdominal panniculus present and Yes obesity Palpation (GI): Soft to palpation, nontender, no guarding, not rigid and No hepatosplenomegaly present Percussion: Yes normal to percussion Auscultation: normal bowel sounds Rectal Exam - Female: deferred Skin General skin exam: no rashes or lesions noted, turgor normal, skin not dry, no jaundice, No spider nevi and no striae Rashes: no rashes Nails: normal Neuro General: oriented to person, oriented to place and oriented to time Cranial nerves: Yes Equal, round and reactive pupils present and Yes Normal hearing present Speech: No Abnormal speech present Extrem General: Yes normal to inspection, No clubbing, No cyanosis and No edema Psych Appearance: grossly normal and well kempt Mental Status: mental status grossly normal Speech and movement: Normal speech and movement present Affect: normal affect Attitude: cooperative Thought process: Normal thought process present and not confabulating Thought content: Normal thought content present Insight: Limited insight present (Psych) Judgement: Limited judgement present (Psych) Assessment & Plan Assessment & Plan (1) H. pylori infection: Comment: 11/2022 stool antigen positive, 12/25/2020 sent quadruple therapy, also failed Levaquin/amoxicillin rescue therapy 02/2022 Code(s): A04.8 - Other specified bacterial intestinal infections Category: Medical Plan - The patient is a 34-year-old female presenting with a positive Helicobacter pylori test. - Previously treated for H. pylori infection but has failed all of the initial regimens and did not receive both of the antibiotics the last time I prescribed amoxicillin and rifabutin. - Tests confirmed persistent H. pylori infection; advised to start treatment with rifabutin and amoxicillin. - Reports ongoing issues with constipation. - Requires hemorrhoid cream for management. - Current medications include omeprazole, semethicone, and Trulance. She feels these are controlling her symptoms of constipation bloating and GERD well. Return office visit in 8 weeks Medications: New rifabutin 300 mg (2 x 150 mg) PO DAILY 28 caps 0RF 14 days A04.8 - Other specified bacterial intestinal infections amoxicillin 1,000 mg (2 x 500 mg) PO Q12H 56 caps 0RF 14 days A04.8 - Other specified bacterial intestinal infections Refilled plecanatide (Trulance) 3 mg PO DAILY 90 tabs 1RF 90 days K59.04 - Chronic idiopathic constipation omeprazole 40 mg PO BID 180 caps 1RF 90 days K21.9 - Gastro-esophageal reflux disease without esophagitis, R10.13 - Epigastric pain simethicone after meals 180 mg PO QID 360 caps 1RF 90 days hydrocortisone 2.5% (Proctosol HC) BE SURE TO INCLUDE RECTAL APPICATOR!! 1 [address] [place] BID 30 grams 6RF hemorrhoids K64.9 - Unspecified hemorrhoids Coding Level of Care Code Est Pt Level 3 (19285) Diagnoses H. pylori infection A04.8
[2024-11-26 12:51] VITALS: BP 134/78; PULSE 86; RESP 15; BMI 51.5
--- OUTSIDE RECORDS SUMMARY | 2024-11-26 13:16 | XMS_ITS | Patient Health Record ---
Author Organization [facility] Address [address] [place] [address] [place] [id number] Care Team Providers Care Ultrasound Applications Specialist Name Role Phone Jj ANG, Yovana Primary Care Provider Unavail able Milad Triplett Unavailable [phone] Allergies Allergen (clinical drug ingredient) Drug/Non Drug [...] Treatment Pending Test Test Name Order Date [id number] I&D ABSCESS- SIMPLE,SINGLE 022 Insurance Providers Payer Name Payer Address Payer Phone Subscriber Number Group Number Insured Name Patient Relationship to Insured Coverage Start Date Coverage End Date [facility] [employer] Claims [address] [place] [phone] [id number] Megha Ambrocio Self - patient is the insured Medical (General) History Medical History History ICD Code asthma thyroid Surgical History Surgery Date(Month/Year)
== END 2024-11-26 13:12 | disposition home or self-care (01) ==
LOC: HO.HGI 12:47
PROVIDERS: PCP Internal Medicine; Visit Provider Nurse Practitioner
DX: A04.8 Other specified bacterial intestinal infections (principal)
CPT/HCPCS: 99213

== ENCOUNTER → 2024-11-26 12:46 | Outpatient (BNVA) | payer OTHER, SELFPAY | PROVIDERS: PCP Internal Medicine; Visit Provider Nurse Practitioner | DX: A04.8 Other specified bacterial intestinal infections (principal); K59.04 Chronic idiopathic constipation; K21.9 Gastro-esophageal reflux disease without esophagitis | CPT/HCPCS: 99212 ==

== ENCOUNTER 2024-12-09 07:32 | Emergency (ER) | payer OTHER, SELFPAY ==
[2024-12-09 07:38] VITALS: BP 145/94; PULSE 76; RESP 18; TEMP 36.1; O2SAT 99; BMI 49.8
[2024-12-09 07:53] LABS: MANUAL DIFF FLAG NO
[2024-12-09 07:55] LABS: Hematocrit 38.3 % (37.0-47.0); Hemoglobin 12.4 g/dl (12.0-16.0); Imm Gran Abs Auto 0.01 X10*3/uL (0.00-0.03); Imm Gran Pct Auto 0.2 % (0.0-0.4); Lymphocytes Absolute Auto 1.8 X10*3/uL (1.2-4.9); Mean Corpuscular HGB Conc 32.4 g/dl (31.0-35.0); Mean Corpuscular Hemoglobin 27.0 pg (27.0-33.0); Mean Corpuscular Volume 83.3 fL (80.0-98.0); NRBC Abs Auto 0.000 X10*3/uL (0.0-0.012); NRBC Pct Auto 0.0 /100WBC (0.0-0.2); Platelet Count 250 X10*3/uL (160-400); Red Blood Count 4.60 X10*6/uL (4.20-5.50); White Blood Count 6.3 X10*3/uL (4.8-10.8)
--- NOTE | 2024-12-09 08:04 | ED.GENADULT ---
HPI - General Adult General Chief complaint: General Medical Stated complaint: swollen legs/feet, L side lump on breast, back juana Time Seen by Provider: 12/09/24 08:01 Source: patient, RN notes reviewed and old records reviewed Mode of arrival: ambulatory Limitations: no limitations History of Present Illness ED Provider: Snow HPI narrative: Patient is a 34-year-old female with history of hypertension, abnormal uterine bleeding, Chestnut, obesity, chronic idiopathic constipation, autoimmune thyroiditis, GERD, asthma presenting to the emergency department with complaint of intermittent swelling to lower extremities for the past few months as well as low back pain. She also reports intermittent brief episodes of chest pain and shortness of breath. Denies calf pain or swelling. Not on OCPs. Denies current chest pain or dyspnea now. Also reporting tenderness to left lateral chest area, states she feels a mass there. Denies any redness to the area, warmth, or recent fevers. Has a PCP but has not seen in some time, cannot recall last time she had her thyroid checked. MD complaint: leg swelling Onset (ago): month(s) Related Data Home Medications ?Medication ?Instructions ?Recorded ?Confirmed fluoxetine 20 mg capsule 60 mg PO QAM 02/13/22 03/04/22 mirtazapine 30 mg tablet 30 mg PO BEDTIME 02/13/22 03/04/22 prazosin 5 mg capsule 5 mg PO BEDTIME 02/13/22 03/04/22 trazodone 100 mg tablet 100 mg PO BEDTIME 02/13/22 03/04/22 levothyroxine 150 mcg tablet 150 mcg PO DAILY 07/18/22 risperidone 4 mg tablet 4 mg PO DAILY 09/03/22 spironolactone 50 mg tablet 50 mg PO BID 09/03/22 Previous Rx's ?Medication ?Instructions ?Recorded meloxicam 15 mg tablet 15 mg PO DAILY #14 tabs 06/19/22 clotrimazole-betamethasone 1 1 appl topical BID 2 weeks #45 09/03/22 %-0.05 % topical cream grams cetirizine 10 mg tablet (All Day 10 mg PO DAILY PRN allergy 07/08/24 Allergy (cetirizine)) symptoms 90 days #90 tabs losartan 25 mg tablet 25 mg PO DAILY 90 days #90 tabs 08/27/24 albuterol sulfate 90 mcg/actuation 2 puff PO Q4H PRN for muscle spasm 09/06/24 aerosol inhaler (Ventolin HFA) 30 days #18 ea cholecalciferol (vitamin D3) 50 50 mcg PO DAILY #90 caps 09/17/24 mcg (2,000 unit) capsule blood pressure test kit-large #1 ea 10/09/24 ([place] Blood Pressure Monitor kit) amoxicillin 500 mg capsule 1,000 mg (2 x 500 mg) PO Q12H 14 11/26/24 days #56 caps hydrocortisone 2.5 % topical cream 1 appl ME BID hemorrhoids #30 grams 11/26/24 with perineal applicator (Proctosol HC) omeprazole 40 mg capsule,delayed 40 mg PO BID 90 days #180 caps 11/26/24 release plecanatide 3 mg tablet (Trulance) 3 mg PO DAILY 90 days #90 tabs 11/26/24 rifabutin 150 mg capsule 300 mg (2 x 150 mg) PO DAILY 14 11/26/24 days #28 caps simethicone 180 mg capsule 180 mg PO QID 90 days #360 caps 11/26/24 Allergies Allergy/AdvReac Type Severity Reaction Status Date / Time ergocalciferol (vitamin D2) AdvReac Mild swelling Verified 12/09/24 07:39 (From Vitamin D2) Review of Systems Review of Systems: As per HPI Yes all other systems are reviewed and are negative Constitutional: Constitutional: Reports as per HPI [facility] Past Medical History Medical History Elevated blood pressure reading without diagnosis of hypertension Yeast cystitis Dysuria Cystitis Irregular menses Abnormal menses Physical exam Lumbar pain Epigastric pain Left lower quadrant abdominal pain Hemorrhoids Abnormal uterine bleeding PCOS (polycystic ovarian syndrome) Morbid obesity with BMI of 50.0-59.9, adult Thoracic spine pain Lumbar pain Left hip pain Tachycardia Left knee pain Elevated testosterone level Morbid obesity with BMI of 50.0-59.9, adult Autoimmune thyroiditis GERD (gastroesophageal reflux disease) Goiter Shortness of breath Chest pain Obese Hypovitaminosis D Mild asthma Hypothyroidism Surgical History No pertinent past surgical history Family History Family History Father No problems noted. Mother No problems noted. Maternal Grandmother Hypertension Paternal Grandmother Hypertension Diabetes Paternal Grandfather Diabetes Hypertension Social History Social History Housing: Apartment Unable to assess alcohol history related to: Unknown Alcohol intake: never Patient Tobacco Use Status: Never used Tobacco Smoked in Last 30 Days: No e-Cigarette/Vaping Use: Never Used Second Hand Smoke Exposure: No Use of substances other than those prescribed or required for medical reasons: Unknown Advance Directives: No Advance Directives Information Provided: Yes Patient : No service: No Current occupational status: unemployed Cognitive needs: No Hearing needs: No Vision needs: No Physical Exam ED Vital Signs: Vital Signs - 24 hr 12/09/24 07:38 12/09/24 08:22 Temperature 96.9 F 97.8 F Pulse Rate 76 82 Respiratory Rate 18 17 Blood Pressure 145/94 H 115/55 L Pulse Oximetry 99 98 Oxygen Delivery Method Room Air Room Air BMI result Body Mass Index 49.8 Vital signs have been reviewed and appear to be correct. Blood pressure normal. Heart rate normal. Respiratory rate normal. Temperature normal. Oxygen saturation normal. Const General: cooperative and no acute distress Nutritional Appearance: obese morbidly obese Orientation/consciousness: oriented to person, oriented to place, oriented to time and patient oriented x3 Limitations: no limitations HENMT Head: Yes normocephalic and Yes atraumatic Ears: external ears normal General nose exam: Normal external nose present Face and sinus: Yes face symmetric Mouth: oropharynx normal and moist mucous membranes Throat: Yes uvula midline Eyes Pupils: Equal, round and reactive pupils present Neck Neck: Yes normal visual inspection and Yes supple Chest Other: no mass or swelling of left lateral chest as compared to right lateral chest Chest palpation & inspection: normal inspection of the chest Breast/axilla inspection: normal inspection of the axillae Breast/axilla palpation: no axillary lymphadenopathy Chest/axillae images:  1. tenderness to left lateral chest without erythema, warmth, fluctuance, ecchymosis, no bony tenderness Resp Effort & Inspection: normal respiratory effort and able to speak in complete sentences Auscultation: clear to auscultation bilaterally Cardio Rate: regular rate Rhythm: regular rhythm Heart sounds: S1 normal heart sound present and S2 normal heart sound present GI Palpation (GI): Soft to palpation and nontender Auscultation: normoactive bowel sounds General: Yes no CVA tenderness Back/Spine/Pelvis Back: no CVA tenderness Thoracic/Lumbar Spine: thoracic and lumbar spine normal to inspection, thoraco-lumbar ROM normal, straight leg raise negative bilaterally, pain with thoraco-lumbar ROM, paraspinal muscle tenderness bilaterally in the mid lumbar, No thoracic spinal tenderness and No lumbar spinal tenderness Skin General skin exam: elasticity normal and turgor normal Neuro General: oriented to person, oriented to place, oriented to time, patient oriented x3, moves all extremities, no focal motor deficits and CN's II-XI intact bilaterally Cranial nerves: Yes Equal, round and reactive pupils present Cognition (Neuro): normal cognition Extrem General: Yes full ROM, Yes no calf tenderness and Yes pedal edema (mild non-pitting edema to bilateral lower extremities) Psych Mental Status: mental status grossly normal Affect: normal affect Thought process: Normal thought process present Medical Decision Making Medical Decision Making MDM Narrative: Patient is a 34-year-old female with history of hypertension, abnormal uterine bleeding, Chestnut, obesity, chronic idiopathic constipation, autoimmune thyroiditis, GERD, asthma presenting to the emergency department with complaint of intermittent swelling to lower extremities for the past few months as well as low back pain. On exam patient is awake, A+Ox3, VS WNL, afebrile, normal neurological exam without focal deficits, physical exam findings as above. Given reported symptoms and physical exam findings, initial differential includes but is not limited to NADINE, electrolyte abnormality, abnormal thyroid level, dependent edema, left chest wall muscle strain, lumbar strain, lumbar radiculopathy. Unlikely vertebral fracture. Do not suspect malignancy/mass, SEA, cauda equina/cord compression. Low suspicion for DVT as swelling is to bilat LEs, no calf tenderness, Wells score 0, but will check d-dimer. Given ongoing intermittent nature of chest pain, unlikely ACS. EKG shows NSR. Labs notable for elevated TSH with normal free T4, no leukocytosis, no anemia, no evidence of NADINE. Labs consistent with subclinical hypothyroidism. UA notable for 1+ leukocytes, 6-10 wbc's, 2+ blood, 6-10 epithelials. Given lack of urinary symptoms, will hold off on treatment for UTI until urine culture has resulted. Results discussed with patient and all questions answered. Advised close follow-up with PCP. Return precautions discussed. Patient verbalized understanding of and agreement with plan. Differential Diagnosis Differential Diagnoses: The differential diagnosis associated with the presentation includes As per [facility] Admission/Observation Consideration of admission/observation: Escalation of care including admission/observation considered Patient would have been admitted to the hospital had their clinical presentation warranted hospital admission. Lab Data [facility] Lab Attestation statement: I reviewed the patient's lab results. per [facility] 12/09/24 07:48 12/09/24 07:48 Labs: Lab Results 12/09/24 12/09/24 12/09/24 Range/Units 07:48 09:00 09:23 WBC 6.3 (4.8-10.8) X10*3/uL RBC 4.60 (4.20-5.50) X10*6/uL Hgb 12.4 (12.0-16.0) g/dl Hct 38.3 (37.0-47.0) % MCV 83.3 (80.0-98.0) fL MCH 27.0 (27.0-33.0) pg MCHC 32.4 (31.0-35.0) g/dl RDW 14.6 (11.0-16.0) % Plt Count 250 (160-400) X10*3/uL MPV 9.4 (9.4-12.3) fL Immature Gran % (Auto) 0.2 (0.0-0.4) % Neut % (Auto) 63.6 (45-73) % Lymph % (Auto) 28.2 (20-40) % [place] % (Auto) 5.9 (2-11) % Eos % (Auto) 1.9 (0-4) % Baso % (Auto) 0.2 (0-2) % Lymph # (Auto) 1.8 (1.2-4.9) X10*3/uL [place] # (Auto) 0.4 (0.1-1.2) X10*3/uL Eos # (Auto) 0.1 (0.0-0.4) X10*3/uL Baso # (Auto) 0.0 (0.0-0.2) X10*3/uL Abs Immat Gran (auto) 0.01 (0.00-0.03) X10*3/uL Absolute Neuts (auto) 4.0 (2.0-8.3) x10*3/uL Absolute Nucleated RBC 0.000 (0.0-0.012) X10*3/uL Nucleated RBC % (auto) 0.0 (0.0-0.2) /100WBC D-Dimer High Sensitivty < 150 NG/ML Sodium 141 (135-145) mmol/L Potassium 4.0 (3.3-5.1) mmol/L Chloride 107 (96-108) mmol/L Carbon Dioxide 27 (22-29) mmol/L Anion Gap 11 L (12-20) BUN 11 (9-16) mg/dL Creatinine 0.87 (0.5-1.4) mg/dL Estim Creat Clear Calc 125.2 Estimated GFR > 60 Random Glucose 103 (60-115) mg/dL Calcium 8.9 (8.4-10.2) mg/dL Total Bilirubin 0.3 (0.0-1.0) mg/dL AST 23 (5-31) U/L ALT 18 (0-31) U/L Alkaline Phosphatase 68 (39-117) U/L B-Natriuretic Peptide 12 (<100) pg/mL Total Protein 7.3 (6.5-8.0) g/dL Albumin 3.9 (3.5-5.0) g/dL TSH 5.75 H (0.32-4.0) uIU/mL Free T4 0.97 (0.71-1.85) ng/dL Urine Color Yellow Urine Appearance Cloudy Urine pH 5.5 (5.0-9.0) Ur Specific [place] 1.020 (1.005-1.025) Urine Protein Negative (Neg-Trace) mg/dL Urine Glucose (UA) Negative (Negative) mg/dL Urine Ketones Trace (Negative) mg/dL Urine Blood Moderate (2+) H (Negative) Urine Nitrite Negative (Negative) Ur Leukocyte Esterase Small (1+) H (Negative) Urine RBC 11-20 H (0-2) /HPF Urine WBC 6-10 H (0-5) /HPF Ur Squamous Epith Cells 6-10 (0-2) /HPF Urine Bacteria Trace (None Seen) Hyaline Casts 0-2 (0-2) /LPF Independent Interpretation I performed an independent interpretation of an: EKG (Normal sinus rhythm, rate 62 beats per minute, normal ME interval and QTC, no evidence of STEMI) External Record Review External record reviewed: Inpatient record, Office record and Outpatient record Chronic Conditions Patient?s care impacted by: Other Discharge Plan Discharge Clinical Impression: Subclinical hypothyroidism, Dependent edema Patient Disposition: Home, Self-Care Instructions: Subclinical Hypothyroidism (ED) Additional Instructions: You were evaluated in the emergency department today for leg swelling. Your thyroid levels were slightly abnormal and we recommend that you follow-up with your primary care provider this week. We also recommend that you elevate your legs while at rest. You can also purchase [id number] compression stockings to aid with your lower leg swelling. The rest of your labs were reassuring. Return to the emergency department for new or concerning symptoms. Prescriptions: No Action losartan 25 mg tablet 25 mg PO DAILY 90 Days Qty: 90 1RF albuterol sulfate [Ventolin HFA] 90 mcg/actuation HFA aerosol inhaler 2 puff PO Q4H PRN (Reason: for muscle spasm) 30 Days Qty: 18 6RF cholecalciferol (vitamin D3) 50 mcg (2,000 unit) capsule 50 mcg PO DAILY Qty: 90 1RF (DME) blood pressure test kit-large [ParktTouch BP Monitor] Kit See Rx Instructions .Route Qty: 1 0RF Rx Instructions: As directed meloxicam 15 mg tablet 15 mg PO DAILY Qty: 14 0RF fluoxetine 20 mg capsule 60 mg PO QAM prazosin 5 mg capsule 5 mg PO BEDTIME trazodone 100 mg tablet 100 mg PO BEDTIME mirtazapine 30 mg tablet 30 mg PO BEDTIME levothyroxine 150 mcg tablet 150 mcg PO DAILY spironolactone 50 mg tablet 50 mg PO BID clotrimazole-betamethasone 1-0.05 % cream 1 appl topical BID 14 Days Qty: 45 1RF risperidone 4 mg tablet 4 mg PO DAILY cetirizine [All Day Allergy (cetirizine)] 10 mg tablet 10 mg PO DAILY PRN (Reason: allergy symptoms) 90 Days Qty: 90 1RF rifabutin 150 mg capsule 300 mg PO DAILY 14 Days Qty: 28 0RF amoxicillin 500 mg capsule 1,000 mg PO Q12H 14 Days Qty: 56 0RF Trulance 3 mg tablet 3 mg PO DAILY 90 Days Qty: 90 1RF omeprazole 40 mg capsule,delayed release(DR/EC) 40 mg PO BID 90 Days Qty: 180 1RF simethicone 180 mg capsule 180 mg PO QID 90 Days Qty: 360 1RF Rx Instructions: after meals hydrocortisone [Proctosol HC] 2.5 % cream with perineal applicator 1 appl ME BID Qty: 30 6RF Rx Instructions: BE SURE TO INCLUDE RECTAL APPICATOR!! Print Language: Latvian
[2024-12-09 08:10] LABS: Alanine Aminotransferase 18 U/L (0-31); Albumin Level 3.9 g/dL (3.5-5.0); Alkaline Phosphatase 68 U/L (39-117); Anion Gap 11 (12-20); Aspartate Amino Transferase 23 U/L (5-31); Blood Urea Nitrogen 11 mg/dL (9-16); Calcium 8.9 mg/dL (8.4-10.2); Carbon Dioxide 27 mmol/L (22-29); Chloride 107 mmol/L (96-108); Creatinine Clr Calc Pharmacy 125.2; Estimated Glomerular Filt Rate > 60; Potassium 4.0 mmol/L (3.3-5.1); Sodium 141 mmol/L (135-145); Total Protein 7.3 g/dL (6.5-8.0)
[2024-12-09 08:22] VITALS: BP 115/55; PULSE 82; RESP 17; TEMP 36.6; O2SAT 98
--- NOTE | 2024-12-09 08:56 | ECG_ITS ---
Test Reason : CHEST PAIN Blood Pressure : */* mmHG Vent. Rate : 62 BPM Atrial Rate : 62 BPM P-R Int : 166 ms QRS Dur : 82 ms QT Int : 412 ms P-R-T Axes : 31 -27 -8 degrees QTcB Int : 418 ms Normal sinus rhythm Normal ECG When compared with ECG of 19-Jun-2022 08:39, No significant change was found Referred By: Yadi Adamson Electronically Signed By: JOHNNY JACOME MD
[2024-12-09 09:10] LABS: B Type Natriuretic Peptide 12 pg/mL (<100)
[2024-12-09 09:32] LABS: Appearance Urine Cloudy; Glucose Urine UA Negative (Negative); PH 5.5 (5.0-9.0); Specific Gravity - Urine 1.020 (1.005-1.025); UMIC TRIGGER UACC YES
[2024-12-09 09:33] LABS: D Dimer High Sensitivity < 150 NG/ML
[2024-12-09 09:34] LABS: UACC Culture Trigger YES
--- OUTSIDE RECORDS SUMMARY | 2024-12-09 09:34 | XMS_ITS | Patient Health Record ---
Author Organization [facility] Address [address] [place] [address] [place] [address] Care Team Providers Care Director Life Sales Name Role Phone Jj NAG, Yovana Primary Care Provider Unavail able Milad Triplett Unavailable [phone] Allergies Allergen (clinical drug ingredient) Drug/Non Drug [...] Treatment Pending Test Test Name Order Date 52708 I&D ABSCESS- SIMPLE,SINGLE 022 Insurance Providers Payer Name Payer Address Payer Phone Subscriber Number Group Number Insured Name Patient Relationship to Insured Coverage Start Date Coverage End Date [facility] S[employer] Claims [address] [place] [phone] [id number] Megha Ambrocio Self - patient is the insured Medical (General) History Medical History History ICD Code asthma thyroid Surgical History Surgery Date(Month/Year)
[2024-12-09 09:41] LABS: Free T4 (Free Thyroxine) 0.97 ng/dL (0.71-1.85)
[2024-12-09 10:21] VITALS: BP 115/55; PULSE 82; RESP 16; TEMP 36.4; O2SAT 98
== END 2024-12-09 10:24 | disposition home or self-care (01) ==
PROVIDERS: Registered Nurse Emergency; Emergency Provider Emergency Medicine; PCP Internal Medicine
DX: R60.0 Localized edema (principal); M54.50 Low back pain, unspecified; E03.9 Hypothyroidism, unspecified; R07.89 Other chest pain; R06.02 Shortness of breath; Z79.899 Other long term (current) drug therapy
CPT/HCPCS: 36415; 80053; 81001; 83880; 84439; 84443; 85025; 85379; 87086; 93005; 99283; 99284

== ENCOUNTER → 2024-12-09 08:56 | Outpatient (BNV) | payer OTHER, SELFPAY | PROVIDERS: Emergency Provider Emergency Medicine; PCP Internal Medicine; Visit Provider Internal Medicine Cardiovascular Disease | DX: R07.89 Other chest pain (principal) | CPT/HCPCS: 93010 ==

== ENCOUNTER 2025-01-10 10:55 | Outpatient (AMB) | payer OTHER, SELFPAY ==
--- OUTSIDE RECORDS SUMMARY | 2025-01-10 11:00 | XMS_ITS | Patient Health Record ---
Author Organization [facility] Address [address] [place] [address] [place] [address] Care Team Providers Care Vacuum Evaporation Operator Name Role Phone Jj ANG, Yovana Primary Care Provider Unavail able Milad Triplett Unavailable [phone] Allergies Allergen (clinical drug ingredient) Drug/Non Drug [...] Treatment Pending Test Test Name Order Date [address]67 I&D ABSCESS- SIMPLE,SINGLE 022 Insurance Providers Payer Name Payer Address Payer Phone Subscriber Number Group Number Insured Name Patient Relationship to Insured Coverage Start Date Coverage End Date [facility] SCO Claims [address] [place] [phone] [id number] Megha Ambrocio Self - patient is the insured Medical (General) History Medical History History ICD Code asthma thyroid Surgical History Surgery Date(Month/Year)
--- NOTE | 2025-01-10 11:11 | A.OFFPC_ITS ---
Vital Signs 01/10/25 11:12 Height 5 ft 4 in Weight 298 lb BMI 51.1 BP 110/80 Blood Pressure Location Lt brachial Position Sitting Respiration 18 Pulse 72 Pulse Source Pulse Oximeter Temp 97.8 F Temp Source Temporal Artery Scan Pulse Oximetry (%) 97 Oxygen Delivery Method Room Air Intake Visit Reasons: 6 month f/u Pharmaceutical Physician Required: No Accompanied by: Self / Same As Patient Allergies ergocalciferol (vitamin D2) (From Vitamin D2) Adverse Reaction (Mild, Verified 01/10/25 11:23) swelling Medication List - Last Reconciled 01/10/25 by Yovana Salas MD albuterol sulfate 90 mcg/actuation (Ventolin HFA) 2 puffs PO Q4H PRN 30 days amoxicillin 1,000 mg (2 x 500 mg) PO Q12H 14 days blood pressure test kit-large (Aplicor Blood Pressure Monitor kit) As directed cetirizine (All Day Allergy (cetirizine)) 10 mg PO DAILY PRN 90 days cholecalciferol (vitamin D3) 50 mcg PO DAILY clotrimazole-betamethasone 1-0.05 % 1 appl topical BID 2 weeks fluoxetine 60 mg PO QAM hydrocortisone 2.5% (Proctosol HC) 1 appl OR BID levothyroxine 150 mcg PO DAILY losartan 25 mg PO DAILY 90 days meloxicam 15 mg PO DAILY mirtazapine 30 mg PO BEDTIME omeprazole 40 mg PO BID 90 days plecanatide (Trulance) 3 mg PO DAILY 90 days prazosin 5 mg PO BEDTIME rifabutin 300 mg (2 x 150 mg) PO DAILY 14 days risperidone 4 mg PO DAILY simethicone 180 mg PO QID 90 days spironolactone 50 mg PO BID trazodone 100 mg PO BEDTIME Tobacco use date assessed: 01/10/25 Dental Screening Dental Screen Date: 01/10/25 Did you have a dental visit in the last 12 months?: Yes Did you have a dental problem in the last 6 months where you did not have access to dental care?: No Was dental information given to patient?: Patient has dentist HPI HPI Comments History of Present Illness Details The patient is a 34-year-old female presenting for follow-up of hypothyroidism, hypertension, and gastrointestinal issues. The patient has a history of hypothyroidism, with the last thyroid function test conducted approximately a year ago showing a slightly elevated TSH level of 5.75, above the normal range of up to 4. The patient has been on levothyroxine 150 mcg for a year, and the dose is being increased to 175 mcg due to the elevated TSH level. The patient also has a history of hypertension, which is currently well- controlled with losartan 25 mg daily. The patient is diagnosed with depression and is currently on fluoxetine 60 mg daily. The patient reports issues with gastroesophageal reflux disease and is taking omeprazole for management. The patient is also dealing with obesity, with a noted weight of 98 kg and a height of 5 feet 4 inches, indicating a need for significant weight reduction. The patient has declined weight management interventions despite the recommendation to lose over 100 pounds. [facility] Medical History (Updated 01/10/25 @ 11:32 by Yovana Salas MD) Elevated blood pressure reading without diagnosis of hypertension Yeast cystitis Dysuria Cystitis Irregular menses Abnormal menses Physical exam Lumbar pain Epigastric pain Left lower quadrant abdominal pain Hemorrhoids Abnormal uterine bleeding PCOS (polycystic ovarian syndrome) Morbid obesity with BMI of 50.0-59.9, adult Thoracic spine pain Lumbar pain Left hip pain Tachycardia Left knee pain Elevated testosterone level Morbid obesity with BMI of 50.0-59.9, adult Autoimmune thyroiditis GERD (gastroesophageal reflux disease) Goiter Shortness of breath Chest pain Obese Hypovitaminosis D Mild asthma Hypothyroidism Surgical History No pertinent past surgical history Family History Father No problems noted. Mother No problems noted. Maternal Grandmother Hypertension Paternal Grandmother Hypertension Diabetes Paternal Grandfather Diabetes Hypertension Social History Housing: Apartment Alcohol intake: never Patient Tobacco Use Status: Never used Tobacco e-Cigarette/Vaping Use: Never Used Second Hand Smoke Exposure: No service: No Current occupational status: unemployed Cognitive needs: No Hearing needs: No Vision needs: No Female Reproductive History Menstrual Age of Menarche: 13 Questionnaire Thrive Questionnaire Date Thrive assessed: 07/08/24 I am a: Patient What is your living situation today?: I have a steady place to live Within the past 12 months, did the food you bought not last and you didn't have the money to get more?: I choose not to answer this question Within the past 12 months, did you worry whether your food would run out before you got money to buy more?: I choose not to answer this question Do you have trouble paying for medicines?: No Do you have trouble getting transportation to medical appointments?: No Do you have trouble paying your heating and electricity bill?: No Do you have trouble taking care of your child, family member or friend?: No Do you have trouble with day-to-day activities such as bathing, preparing meals, shopping, managing finances, etc.?: No Are you currently unemployed and looking for a job?: No Are you interested in more education?: No Please select the resources that you would like help with: None Currently or been in a relationship where the following occur: No concerns reported THRIVE Score: 0 ISAURO-7 AMB Questionnaire ISAURO-7 Date ISAURO - 7 assessed: 07/08/24 Source: Developed by Drs. Ruben Ortiz, Simran Meadows, Master Pritchard and colleagues, with an educational shelia from [employer]. Review of Systems Const All systems reviewed & are unremarkable except as noted in HPI and below Card Denies chest pain at rest, Denies chest pain with activity, Denies edema, Denies irregular heart rhythm, Denies claudication, Denies dyspnea, Denies dyspnea on exertion, Denies orthopnea, Denies paroxysmal nocturnal dyspnea and Denies slow heart rate Resp Denies cough, Denies dyspnea and Denies dyspnea on exertion GI Denies abdominal pain, Denies change in bowel habits, Denies excessive flatus, Denies nausea and Denies vomiting Physical exam (Primary Care) Vital Signs: Last Vital Signs Temp 97.8 F 01/10/25 11:12 Pulse 72 01/10/25 11:12 Resp 18 01/10/25 11:12 BP 110/80 01/10/25 11:12 Pulse Ox 97 01/10/25 11:12 Oxygen Delivery Method Room Air 01/10/25 11:12 BMI result Body Mass Index 51.1 BMI Assessment/Plan discussion: High BMI High, discussed plan: lifestyle, weight reduction, dietary and physical activity Tobacco/Smoking Status: Tobacco use Status Tobacco use date assessed 01/10/25 01/10/25 11:20 Patient Tobacco Use Status Never used Tobacco 01/10/25 11:11 e-Cigarette/Vaping Use Never Used 01/10/25 11:11 Thrive Assessment: Date of Thrive Assessment Date Thrive assessed 07/08/24 01/10/25 11:11 Currently or been in a relationship where the following occur: No concerns reported Resp Effort & Inspection: normal respiratory effort Auscultation: clear to auscultation bilaterally Cardio Jugular venous distension: no JVD Rate: regular rate Rhythm: regular rhythm Heart sounds: S1 normal heart sound present and S2 normal heart sound present Extrem General: Yes full ROM Coding Level of Care Code Est Pt Level 4 (74521) Complex EM visit Add On G2211 Diagnoses Essential hypertension I10 Mild recurrent major depression F33.0 Acquired hypothyroidism E03.9 Hypothyroidism type: acquired Morbid obesity with BMI of 50.0-59.9, adult E66.01; Z68.43 Right upper quadrant abdominal pain R10.11 Time Spent (min) 20 Assessment & Plan Assessment & Plan (1) Essential hypertension: Code(s): I10 - Essential (primary) hypertension Category: Medical (2) Mild recurrent major depression: Code(s): F33.0 - Major depressive disorder, recurrent, mild Category: Medical (3) Hypothyroidism: Code(s): E03.9 - Hypothyroidism, unspecified Category: Medical Qualifiers: Hypothyroidism type: acquired Qualified Code(s): E03.9 - Hypothyroidism, unspecified (4) Morbid obesity with BMI of 50.0-59.9, adult: Code(s): E66.01 - Morbid (severe) obesity due to excess calories; Z68.43 - Body mass index [BMI] 50.0-59.9, adult Category: Medical (5) Right upper quadrant abdominal pain: Code(s): R10.11 - Right upper quadrant pain Category: Medical Plan Plan Patient was informed and verbally consented to the use of an ambient scribe for clinic note documentation during this visit. 1. Hypothyroidism The patient's TSH level was slightly elevated at 5.75, prompting an increase in levothyroxine dosage from 150 mcg to 175 mcg. The patient is advised to repeat thyroid function tests in six weeks to assess the effectiveness of the dosage adjustment. 2. Hypertension The patient's blood pressure is well-controlled with losartan 25 mg daily, and no changes to the current regimen are necessary at this time. 3. Depression The patient is currently on fluoxetine 60 mg daily for depression, and no changes to the medication regimen were discussed during this visit. 4. Gastroesophageal Reflux Disease The patient is managing gastroesophageal reflux disease with omeprazole, and no changes to the treatment plan were discussed. 5. Obesity The patient is advised to consider weight management strategies, although she has declined formal weight management interventions despite the need to lose over 100 pounds. Orders: Orders Thyroid Stimulating Hormone 6 Weeks E03.9 - Hypothyroidism, unspecified US abdomen limited Today R10.11 - Right upper quadrant pain Medications: New levothyroxine (Synthroid) 175 mcg PO DAILY 90 tabs 1RF 90 days
[2025-01-10 11:12] VITALS: BP 110/80; PULSE 72; RESP 18; TEMP 36.6; O2SAT 97; BMI 51.1
== END 2025-01-10 11:41 | disposition home or self-care (01) ==
LOC: HO.HMCH 10:56
PROVIDERS: PCP Internal Medicine; Visit Provider Internal Medicine
DX: I10 Essential (primary) hypertension (principal); F33.0 Major depressive disorder, recurrent, mild; E03.9 Hypothyroidism, unspecified; E66.01 Morbid (severe) obesity due to excess calories; Z68.43 Body mass index [BMI] 50.0-59.9, adult; R10.11 Right upper quadrant pain

== ENCOUNTER → 2025-01-10 10:55 | Outpatient (BNVA) | payer OTHER, SELFPAY | PROVIDERS: PCP Internal Medicine; Visit Provider Internal Medicine | DX: I10 Essential (primary) hypertension (principal); F33.0 Major depressive disorder, recurrent, mild; E03.9 Hypothyroidism, unspecified; E66.01 Morbid (severe) obesity due to excess calories; Z68.43 Body mass index [BMI] 50.0-59.9, adult; R10.11 Right upper quadrant pain; K21.9 Gastro-esophageal reflux disease without esophagitis; Z79.899 Other long term (current) drug therapy | CPT/HCPCS: 99212 ==

== ENCOUNTER 2025-01-26 15:23 | Outpatient (REF) | payer OTHER, SELFPAY ==
[2025-01-26 16:56] LABS: Appearance Urine Clear; Glucose Urine UA Negative (Negative); PH 7.5 (5.0-9.0); Specific Gravity - Urine 1.020 (1.005-1.025); UMIC TRIGGER UACC YES
[2025-01-26 17:08] LABS: UACC Culture Trigger YES
--- OUTSIDE RECORDS SUMMARY | 2025-01-26 19:45 | XMS_ITS | Patient Health Record ---
Author Organization [facility] Address [address] [place] [address] [place] [address] Care Team Providers Care Fitness Teacher Name Role Phone Jj ANG, Yovana Primary Care Provider Unavail able Milad Triplett Unavailable [phone] Allergies Allergen (clinical drug ingredient) Drug/Non Drug [...] Treatment Pending Test Test Name Order Date 17604 I&D ABSCESS- SIMPLE,SINGLE 022 Insurance Providers Payer Name Payer Address Payer Phone Subscriber Number Group Number Insured Name Patient Relationship to Insured Coverage Start Date Coverage End Date [facility] [employer] Claims [address] [id number] [id number] Megha Ambrocio Self - patient is the insured Medical (General) History Medical History History ICD Code asthma thyroid Surgical History Surgery Date(Month/Year)
== END 2025-01-26 15:24 | disposition home or self-care (01) ==
LOC: HO.LAB 15:23
PROVIDERS: PCP Internal Medicine; Visit Provider Internal Medicine
DX: R39.9 Unspecified symptoms and signs involving the genitourinary system (principal)
CPT/HCPCS: 81001; 81003; 87086

== ENCOUNTER 2025-03-18 09:43 | Outpatient (REF) | payer OTHER, SELFPAY ==
--- NOTE | ~2025-03-18 | US_ITS ---
CLINICAL HISTORY: R10.11 - Right upper quadrant pain --- Additional Notes or Special Instructions: rule out cholelithiasis US ABDOMEN LIMITED Comparison: None provided Findings: Pancreas is obscured by bowel gas precluding evaluation. Right hepatic lobe 14.1 cm. Liver echogenicity is increased relative to right renal cortical echogenicity suggesting fatty infiltration. There is no intrahepatic bile duct dilatation. Common bile duct 3.5 mm. There is no sonographic Escamilla sign. 2.1 cm shadowing calculus in the gallbladder neck. The gallbladder is incompletely distended, patient is reported nonfasting. Gallbladder wall measurement of 3.4 mm may be artifactual. The main portal vein is antegrade. Right kidney length 10.5 cm. No hydronephrosis. No ascites. IMPRESSION: 1. Cholelithiasis with no convincing evidence for acute cholecystitis. 2. No biliary ductal dilatation. 3. Probable hepatic steatosis. 4. No right hydronephrosis. This document has been electronically signed by: Selene Coulter DO on 03/18/2025 13:45:13
--- OUTSIDE RECORDS SUMMARY | 2025-03-18 10:35 | XMS_ITS | Patient Health Record ---
Author Organization [facility] Address [address] [place] [address] [place] [address] Care Team Providers Care Scientific Glass Blower Name Role Phone Jj ANG, Yovana Primary Care Provider Unavail able Milad Triplett Unavailable [phone] Allergies Allergen (clinical drug ingredient) Drug/Non Drug [...] Treatment Pending Test Test Name Order Date 88288 I&D ABSCESS- SIMPLE,SINGLE 022 Insurance Providers Payer Name Payer Address Payer Phone Subscriber Number Group Number Insured Name Patient Relationship to Insured Coverage Start Date Coverage End Date [facility] [employer] Claims [address] [id number] [id number] Megha Ambrocio Self - patient is the insured Medical (General) History Medical History History ICD Code asthma thyroid Surgical History Surgery Date(Month/Year)
== END 2025-03-18 09:44 | disposition home or self-care (01) ==
LOC: HO.US 09:43
PROVIDERS: PCP Internal Medicine; Visit Provider Internal Medicine
DX: R10.11 Right upper quadrant pain (principal)
CPT/HCPCS: 76705

== ENCOUNTER → 2025-03-18 09:48 | Outpatient (BNV) | payer OTHER, SELFPAY | PROVIDERS: PCP Internal Medicine; Visit Provider Radiology Diagnostic Radiology | DX: K80.20 Calculus of gallbladder without cholecystitis without obstruction (principal) | CPT/HCPCS: 76705 ==